=== PATIENT | male | born 1935 | race Two or more races ===

== ENCOUNTER 2016-08-02 17:07 | Emergency (ER) | payer MEDICARE, MEDICAID ==
--- NOTE | 2016-08-02 18:31 | ER Document Report ---
ED Medical Screen (RME) - General Chief Complaint: Urinary Problem Stated Complaint: POSSIBLE BLOOD IN URINE Time Seen by Provider: 08/02/16 18:28 Notes: 81-year-old male with past medical history as recorded including diabetes, prostatic hypertrophy, and hematuria who presents today with 2 days of hematuria and some dysuria. Patient also states some lower abdominal "swelling ". He denies any nausea, vomiting, or fevers. TRAVEL OUTSIDE OF THE [place] IN LAST 30 DAYS: No - Related Data Allergies/Adverse Reactions: No Known Allergies Allergy (Verified 08/02/16 17:26) Past Medical History - Past Medical History Cardiac Medical History: Reports: Hx Hypercholesterolemia, Hx Hypertension Neurological Medical History: Denies: Hx Seizures Endocrine Medical History: Reports: Hx Diabetes Mellitus Type 1 Renal/ Medical History: Reports: Hx End Stage Renal Disease - III. Denies: Hx Peritoneal Dialysis Psychiatric Medical History: Reports: Hx Dementia Physical Exam - Vital signs Vitals: Temp Pulse Resp BP Pulse Ox 98.1 F 78 20 148/69 H 98 08/02/16 17:36 08/02/16 17:36 08/02/16 17:36 08/02/16 17:36 08/02/16 17:36 Course - Vital Signs Vital signs: Temp Pulse Resp BP Pulse Ox 98.1 F 78 20 148/69 H 98 08/02/16 17:36 08/02/16 17:36 08/02/16 17:36 08/02/16 17:36 08/02/16 17:36
[2016-08-02] MEDS ORDERED: LIDOCAINE 2% URO-JET 5 ML KIT MM ONE (18:54)
[2016-08-02] MEDS ORDERED: ALBUTEROL SULFATE 0.083% NEB 2.5 MG/3 ML AMPUL NEB ONE (19:26)
[2016-08-02 19:43] LABS: PROTHROMBIN TIME 16.6 SEC (11.4-15.4)
[2016-08-02 19:44] LABS: PARTIAL THROMBOPLASTIN TIME 37.4 SEC (23.5-35.8)
[2016-08-02 19:48] LABS: APPEARANCE,URINE CLOUDY; BILIRUBIN,URINE NEGATIVE (NEGATIVE); GLUCOSE, URINE 50 mg/dL (NEGATIVE); KETONES,URINE NEGATIVE (NEGATIVE); LEUKOCYTE ESTERASE,URINE SMALL (NEGATIVE); NITRITE,URINE NEGATIVE (NEGATIVE); PROTEIN,URINE 100 mg/dL (NEGATIVE); URINE SPECIFIC GRAVITY 1.011; UROBILINOGEN,URINE NEGATIVE mg/dL (<2.0)
[2016-08-02 19:49] LABS: ABSOLUTE BASOPHILS # (AUTO) 0.1 10^3/uL (0.0-0.2); ABSOLUTE EOSINOPHILS # (AUTO) 0.1 10^3/uL (0.0-0.6); ABSOLUTE LYMPHOCYTES (AUTO) 1.1 10^3/uL (0.5-4.7); ABSOLUTE MONOCYTES (AUTO) 1.3 10^3/uL (0.1-1.4); ABSOLUTE NEUT (AUTO) 16.7 10^3/uL (1.7-8.2); BASOPHILS % (AUTO) 0.3 % (0-2); EOSINOPHILS % (AUTO) 0.4 % (0-6); HEMATOCRIT 23.3 % (37.9-51.0); HGB HCT DIFFERENCE -0.8; LYMPHOCYTES % (AUTO) 5.8 % (13-45); MEAN CORPUSCULAR HEMOGLOBIN 28.8 pg (27.0-33.4); MEAN CORPUSCULAR HGB CONC 32.2 g/dL (32.0-36.0); MEAN CORPUSCULAR VOLUME 89 fl (80-97); MONOCYTES % (AUTO) 6.9 % (3-13); RED BLOOD COUNT 2.61 10^6/uL (4.35-5.55); SEGMENTED NEUTROPHILS % (AUTO) 86.6 % (42-78); WHITE BLOOD COUNT 19.3 10^3/uL (4.0-10.5)
[2016-08-02 20:05] LABS: ALANINE AMINOTRANSFERASE 35 U/L (21-72); ALKALINE PHOSPHATASE 203 U/L (38-126); ANION GAP 17 (5-19); ASPARTATE AMINO TRANSFERASE 38 U/L (17-59); BILIRUBIN,DIRECT 0.7 mg/dL (0.0-0.4); BILIRUBIN,TOTAL 0.7 mg/dL (0.2-1.3); CARBON DIOXIDE 13 mmol/L (22-30); CHLORIDE 104 mmol/L (98-107); CREATININE RESULT 8.08 mg/dL (0.52-1.25); GLUCOSE 153 mg/dL (75-110); SODIUM 134.4 mmol/L (137-145); TOTAL PROTEIN 6.5 g/dL (6.3-8.2)
[2016-08-02 20:13] LABS: BLOOD UREA NITROGEN 130 mg/dL (7-20)
[2016-08-02 20:14] LABS: POTASSIUM 7.6 mmol/L (3.6-5.0)
[2016-08-02 20:15] LABS: HEMOGLOBIN 7.5 g/dL (13.5-17.0)
[2016-08-02] MEDS ORDERED: INSULIN REG, HUMAN 100 UNIT/ML 3 ML VIAL (PYX) IM ONE (20:25)
[2016-08-02] MEDS ORDERED: SODIUM POLYSTYRENE SULFONATE 15 GM/60 ML PO ONE (20:25)
[2016-08-02] MEDS ORDERED: CALCIUM GLUCONATE 1000 MG/10 ML INJ IV ONE (20:25)
[2016-08-02] MEDS ORDERED: INSULIN REG, HUMAN 100 UNIT/ML 3 ML VIAL (PYX) IV ONE ×2 (20:30→20:51)
[2016-08-02] MEDS ORDERED: DEXTROSE 10%-WATER 500 ML IV PRN (20:30)
[2016-08-02] MEDS ORDERED: CEFTRIAXONE 1 GM/D5W RTU 50 ML IV ONE (20:36)
--- NOTE | 2016-08-02 20:36 | ER Document Report ---
ED GI/ - General Chief Complaint: Urinary Problem Stated Complaint: POSSIBLE BLOOD IN URINE Time Seen by Provider: 08/02/16 18:28 Mode of Arrival: Ambulatory Information source: Patient Notes: Pt is an 81 year old male with a history of CKD, DM, HTN, dementia who presents today for hematuria x 1 week. Pt has a history of this and has been admitted before for acute renal failure. He is not a dialysis patient, he is not on blood thinners. He admits to some low back pain bilaterally, denies fever/chills , denies abdominal pain, nausea/vomiting, diarrhea, chest pain, shortness of breath. TRAVEL OUTSIDE OF THE [place] IN LAST 30 DAYS: No - Related Data Allergies/Adverse Reactions: No Known Allergies Allergy (Verified 08/02/16 17:26) Past Medical History - General Information source: Patient - Social History Smoking Status: Former Smoker Chew tobacco use (# tins/day): No Frequency of alcohol use: None Drug Abuse: None Family History: Reviewed & Not Pertinent Patient has suicidal ideation: No Patient has homicidal ideation: No - Past Medical History Cardiac Medical History: Reports: Hx Hypercholesterolemia, Hx Hypertension Neurological Medical History: Denies: Hx Seizures Endocrine Medical History: Reports: Hx Diabetes Mellitus Type 1 Renal/ Medical History: Reports: Hx End Stage Renal Disease - III. Denies: Hx Peritoneal Dialysis Psychiatric Medical History: Reports: Hx Dementia Review of Systems - Review of Systems Constitutional: No symptoms reported EENT: No symptoms reported Cardiovascular: No symptoms reported Respiratory: No symptoms reported Gastrointestinal: No symptoms reported Genitourinary: See HPI Male Genitourinary: No symptoms reported Musculoskeletal: No symptoms reported Skin: No symptoms reported Hematologic/Lymphatic: No symptoms reported Neurological/Psychological: No symptoms reported Physical Exam - Vital signs Vitals: Temp Pulse Resp BP Pulse Ox 98.1 F 78 20 148/69 H 98 08/02/16 17:36 08/02/16 17:36 08/02/16 17:36 08/02/16 17:36 08/02/16 17:36 - Notes Notes: PHYSICAL EXAMINATION: GENERAL: Chronically ill-appearing, otherwise in no acute distress. HEAD: Atraumatic, normocephalic. EYES: Pupils equal round and reactive to light, extraocular movements intact, sclera anicteric, conjunctiva are normal. NECK: Normal range of motion, supple without lymphadenopathy LUNGS: CTAB and equal. No wheezes rales or rhonchi. HEART: Regular rate and rhythm without murmurs ABDOMEN: Soft, no tenderness. No guarding, no rebound BACK: no vertebral tenderness, normal ROM GI/: gross blood in miguel cath, no CVA tenderness EXTREMITIES: Normal range of motion, no pitting edema. No cyanosis. NEUROLOGICAL: answers questions appropriately and is alert and oriented to person, place and time, Cranial nerves grossly intact. Normal sensory/motor exams. PSYCH: Normal mood, normal affect. SKIN: Warm, Dry, normal turgor, no rashes or lesions noted Course - Re-evaluation Re-evalutation: 08/02/16 20:36 Pt has WBC of 19.3, >182 WBC in urinalysis, gross blood in miguel, potassium of 7.6, creatinine of 8.08. hgb of 7.6. He has no complaints other than blood in urine, denies chest pain or sob, pain anywhere, palpitations. Dr. Valentin, veterinary technician sonoscope operator wants him to be transferred for urgent dialysis. [facility] has been contacted, I'm awaiting callback. EKG reveals no peaked T waves or other acute abnormality, normal sinus rhythm 08/02/16 20:44 Dr. Dutton, veterinary technician sonoscope operator agrees to take pt at [facility] for hyperkalemia , urgent dialysis. 08/02/16 21:01 08/02/16 21:21 Dr. Mendez agrees to admit patient, he has a bed in the ICU. 08/02/16 23:01 transport is here to take pt, his potassium has reduced to 6.7, blood was not able to be given here due to amount of time it takes to prepare blood, he wouldn 't have gotten the blood in the amount of time it takes to get to [facility]. Pt resting comfortably no complaints. CAT scan reports severe bilateral hydroureteronephrosis with infiltration into the bladder 08/03/16 00:18 08/03/16 00:21 08/03/16 00:21 - Vital Signs Vital signs: Temp Pulse Resp BP Pulse Ox 98.6 F 78 29 H 147/68 H 100 08/02/16 23:01 08/02/16 17:36 08/02/16 23:01 08/02/16 23:01 08/02/16 23:01 - Laboratory Result Diagrams: 08/02/16 18:40 08/02/16 23:14 Laboratory results interpreted by me: 08/02/16 08/02/16 08/02/16 18:40 18:40 18:40 WBC 19.3 H RBC 2.61 L Hgb 7.5 L Hct 23.3 L Seg Neutrophils % 86.6 H Lymphocytes % 5.8 L Absolute Neutrophils 16.7 H PT 16.6 H APTT 37.4 H Sodium 134.4 L Potassium 7.6 H* Carbon Dioxide 13 L BUN 130 H Creatinine 8.08 H Est GFR ( Amer) 8 L Est GFR (Non-Af Amer) 6 L Glucose 153 H POC Glucose Direct Bilirubin 0.7 H Alkaline Phosphatase 203 H Total Protein Albumin 3.0 L Urine Protein Urine Glucose (UA) Urine Blood Ur Leukocyte Esterase Urine Ascorbic Acid Crossmatch 08/02/16 08/02/16 08/02/16 18:45 21:07 21:19 WBC RBC Hgb Hct Seg Neutrophils % Lymphocytes % Absolute Neutrophils PT APTT Sodium Potassium Carbon Dioxide BUN Creatinine Est GFR ( Amer) Est GFR (Non-Af Amer) Glucose POC Glucose 178 H Direct Bilirubin Alkaline Phosphatase Total Protein Albumin Urine Protein 100 H Urine Glucose (UA) 50 H Urine Blood LARGE H Ur Leukocyte Esterase SMALL H Urine Ascorbic Acid 20 H Crossmatch See Detail 08/02/16 23:14 WBC RBC Hgb Hct Seg Neutrophils % Lymphocytes % Absolute Neutrophils PT APTT Sodium 136.8 L Potassium 6.7 H* Carbon Dioxide 12 L BUN 130 H Creatinine 8.31 H Est GFR ( Amer) 8 L Est GFR (Non-Af Amer) 6 L Glucose 166 H POC Glucose Direct Bilirubin 0.6 H Alkaline Phosphatase 180 H Total Protein 6.0 L Albumin 2.8 L Urine Protein Urine Glucose (UA) Urine Blood Ur Leukocyte Esterase Urine Ascorbic Acid Crossmatch Discharge - Discharge Clinical Impression: Hyperkalemia, Gross hematuria, Hydroureteronephrosis Acute renal failure Qualifiers: Acute renal failure type: unspecified Qualified Code(s): N17.9 - Acute kidney failure, unspecified Condition: Stable Disposition: [facility] Referrals: KASHIF PIERCE MD [Primary Care Provider] - Follow up as needed
[2016-08-02] MEDS ORDERED: DEXTROSE 50%-WATER 25 GM/50 ML DISP.SYRIN IV ONE (20:51)
[2016-08-02] MEDS ORDERED: NORMAL SALINE 250 ML IV PRN ×2 (20:52→20:54)
--- NOTE | 2016-08-02 22:13 | EKG REPORT ---
SEVERITY:- ABNORMAL ECG - SINUS RHYTHM CONSIDER INFERIOR INFARCT NONSPECIFIC REPOL ABNORMALITY, LATERAL LEADS : Confirmed by: Lara Hodge MD 02-Aug-2016 22:12:55
--- NOTE | 2016-08-02 22:13 | EKG REPORT ---
SEVERITY:- ABNORMAL ECG - SINUS RHYTHM CONSIDER INFERIOR INFARCT CONSIDER ANTERIOR INFARCT NONSPECIFIC REPOL ABNORMALITY, LATERAL LEADS : Confirmed by: Lara Hodge MD 02-Aug-2016 22:12:50
[2016-08-02 23:20] VITALS: BP 147/68
[2016-08-02 23:41] LABS: ALANINE AMINOTRANSFERASE 32 U/L (21-72); ALBUMIN 2.8 g/dL (3.5-5.0); ALKALINE PHOSPHATASE 180 U/L (38-126); ANION GAP 18 (5-19); ASPARTATE AMINO TRANSFERASE 33 U/L (17-59); BILIRUBIN,DIRECT 0.6 mg/dL (0.0-0.4); BILIRUBIN,TOTAL 0.6 mg/dL (0.2-1.3); CALCIUM 9.6 mg/dL (8.4-10.2); CARBON DIOXIDE 12 mmol/L (22-30); CHLORIDE 107 mmol/L (98-107); CREATININE RESULT 8.31 mg/dL (0.52-1.25); GLUCOSE 166 mg/dL (75-110); SODIUM 136.8 mmol/L (137-145)
[2016-08-02 23:53] LABS: BLOOD UREA NITROGEN 130 mg/dL (7-20)
[2016-08-02 23:56] LABS: POTASSIUM 6.7 mmol/L (3.6-5.0)
== END 2016-08-02 23:05 | disposition short-term general hospital (02) ==
LOC: ER 17:07
DX: E87.5 Hyperkalemia (principal); R31.0 Gross hematuria; N13.30 Unspecified hydronephrosis; N17.9 Acute kidney failure, unspecified; R39.198 Other difficulties with micturition; N18.9 Chronic kidney disease, unspecified; E11.9 Type 2 diabetes mellitus without complications; I10 Essential (primary) hypertension; Z87.891 Personal history of nicotine dependence
CPT/HCPCS: 93005; 94640; 99285; 51702; 96375; 96365; 96367; 86900; 86901; 36415; 87040; 87086; 84439; 86850; 82962; 82607; 82550; 82728; 82746; 83540; 83550; 84153; 84443; 85025; 85610; 85730; 87088; 80053; 81001; 87186; 83036; 80061; 76380; 93010; J0610; J3490; A9270 ×3; J0696; J1815

== ENCOUNTER 2016-08-28 21:27 | Inpatient (IN) | payer MEDICARE, MEDICAID ==
[2016-08-28] MEDS ORDERED: LIDOCAINE 2% URO-JET 5 ML KIT MM ONE (22:26)
--- NOTE | 2016-08-28 22:58 | ER Document Report ---
ED General - General Chief Complaint: Urinary Problem Stated Complaint: FEVER/POSSIBLE BLOOD CLOT Time Seen by Provider: 08/28/16 22:39 Notes: Patient is a 81-year-old male who presents with complaint of having a fever of 102 today. He also noticed some blood when he urinated. He has 2 bilateral nephrostomy tubes. He has a bladder mass. A week ago he was discharged from after having bilateral nephrostomy tubes placed because he was having hydronephrosis from his bladder mass. He says to follow-up later this week with the ctrs for repeat CT scan. Tonight he developed fever and therefore came to the ER. He has had no cough. No congestion. Is not currently on antibiotics. No other complaints at this time. TRAVEL OUTSIDE OF THE [place] IN LAST 30 DAYS: No - Related Data Allergies/Adverse Reactions: No Known Allergies Allergy (Verified 08/02/16 17:26) Past Medical History - Social History Smoking Status: Unknown if Ever Smoked Frequency of alcohol use: None Drug Abuse: None Family History: Reviewed & Not Pertinent Patient has suicidal ideation: No Patient has homicidal ideation: No - Past Medical History Cardiac Medical History: Reports: Hx Hypercholesterolemia, Hx Hypertension Neurological Medical History: Denies: Hx Seizures Endocrine Medical History: Reports: Hx Diabetes Mellitus Type 1 Renal/ Medical History: Reports: Hx End Stage Renal Disease - III. Denies: Hx Peritoneal Dialysis Psychiatric Medical History: Reports: Hx Dementia Review of Systems - Review of Systems Notes: My Normal Review Basic REVIEW OF SYSTEMS: CONSTITUTIONAL : fever of 102 EENT: Denies eye, ear, throat, or mouth pain or symptoms. Denies nasal or sinus congestion. CARDIOVASCULAR: Denies chest pain. RESPIRATORY: Denies cough, cold, or chest congestion. Denies shortness of breath, difficulty breathing, or wheezing. GASTROINTESTINAL: Denies abdominal pain. Denies nausea, vomiting, or diarrhea. GENITOURINARY: Hematuria. Bilateral nephrostomy tubes MUSCULOSKELETAL: Denies neck or back pain or joint pain or swelling. SKIN: Denies rash or skin lesions. NEUROLOGICAL: Denies altered mental status or loss of consciousness. Denies headache. Denies weakness or paralysis or loss of use of either side. Denies problems with gait or speech. Denies sensory or motor loss. ALL OTHER SYSTEMS REVIEWED AND NEGATIVE. Physical Exam - Vital signs Vitals: Temp Pulse Resp BP Pulse Ox 98.7 F 91 16 182/78 H 97 08/28/16 21:50 08/28/16 21:50 08/28/16 21:50 08/28/16 21:50 08/28/16 21:50 - Notes Notes: General Appearance: Well nourished, alert, cooperative, no acute distress, no obvious discomfort. Vitals: reviewed, See vital signs table. Head: no swelling or tenderness to the head Eyes: PERRL, EOMI, Conjuctiva clear Mouth: No decreasd moisture Lungs: No wheezing, No rales, No rhonci, No accessory muscle use, good air exchange bilaterally. Heart: Normal rate, Regular rythm, No murmur, no rub Back: nephrostomy tubes in place. No redness or swelling around the sites Abdomen: Normal BS, soft, No rigidity, No abdominal tenderness, No guarding, no rebound, no abdominal masses, no organomegaly Extremities: strength 5/5 in all extremities, good pulses in all extremities, no swelling or tenderness in the extremities, no edema. Skin: warm, dry, appropriate color, no rash Neuro: speech clear, oriented x 3, normal affect, responds appropriately to questions. Course - Vital Signs Vital signs: Temp Pulse Resp BP Pulse Ox 98.7 F 91 16 182/78 H 97 08/28/16 21:50 08/28/16 21:50 08/28/16 21:50 08/28/16 21:50 08/28/16 21:50 - Laboratory Result Diagrams: 08/28/16 23:19 08/28/16 23:19 Laboratory results interpreted by me: 08/28/16 08/28/16 08/28/16 23:19 23:19 23:19 WBC 15.6 H Hgb 12.4 L MCHC 31.9 L RDW 15.9 H Absolute Neutrophils 12.0 H Absolute Monocytes 1.5 H Sodium 135.2 L BUN 44 H Creatinine 1.67 H Est GFR ( Amer) 48 L Est GFR (Non-Af Amer) 40 L Glucose 260 H Calcium 7.9 L Urine Protein >=500 H Urine Glucose (UA) >=500 H Urine Blood SMALL H Ur Leukocyte Esterase MODERATE H 08/28/16 23:19 WBC Hgb MCHC RDW Absolute Neutrophils Absolute Monocytes Sodium BUN Creatinine Est GFR ( Amer) Est GFR (Non-Af Amer) Glucose Calcium Urine Protein >=500 H Urine Glucose (UA) >=500 H Urine Blood MODERATE H Ur Leukocyte Esterase LARGE H - Transfer of Care Notes: 08/29/16 01:19 Patient has what appears to be infection coming from the urine in the right nephrostomy tube. I will start him on Ambien antibiotics. I have ordered a urine culture. I did call [facility] and spoke with Dr. Medina. He recommends admission here with antibiotics. I did call and speak with Dr. Clayton, physician covering for Dr. Johnson, who agrees to accept the patient. 08/29/16 01:20 Dictation of this chart was performed using voice recognition software; therefore, there may be some unintended grammatical errors. Discharge - Discharge Clinical Impression: Pyuria Fever Qualifiers: Fever type: unspecified Qualified Code(s): R50.9 - Fever, unspecified Condition: Good Disposition: HOME, SELF-CARE Admitting Provider: Alex Unit Admitted: Telemetry
[2016-08-28 23:56] LABS: ABSOLUTE MONOCYTES (AUTO) 1.5 10^3/uL (0.1-1.4); BASOPHILS % (AUTO) 0.2 % (0-2); EOSINOPHILS % (AUTO) 0.2 % (0-6); HEMOGLOBIN 12.4 g/dL (13.5-17.0); HGB HCT DIFFERENCE -1.8; MEAN CORPUSCULAR HGB CONC 31.9 g/dL (32.0-36.0); MEAN CORPUSCULAR VOLUME 88 fl (80-97); MONOCYTES % (AUTO) 9.4 % (3-13); RED BLOOD COUNT 4.44 10^6/uL (4.35-5.55); RED CELL DISTRIBUTION WIDTH 15.9 % (11.5-14.0); SEGMENTED NEUTROPHILS % (AUTO) 77.2 % (42-78); WHITE BLOOD COUNT 15.6 10^3/uL (4.0-10.5)
[2016-08-29 00:04] LABS: ANION GAP 9 (5-19); BLOOD UREA NITROGEN 44 mg/dL (7-20); CALCIUM 7.9 mg/dL (8.4-10.2); CARBON DIOXIDE 24 mmol/L (22-30); CHLORIDE 102 mmol/L (98-107); CREATININE RESULT 1.67 mg/dL (0.52-1.25); GLUCOSE 260 mg/dL (75-110); POTASSIUM 4.1 mmol/L (3.6-5.0); SODIUM 135.2 mmol/L (137-145)
[2016-08-29 00:10] LABS: APPEARANCE,URINE SLIGHTLY-CLOUDY; BILIRUBIN,URINE NEGATIVE (NEGATIVE); GLUCOSE, URINE >=500 mg/dL (NEGATIVE); KETONES,URINE NEGATIVE (NEGATIVE); LEUKOCYTE ESTERASE,URINE MODERATE (NEGATIVE); NITRITE,URINE NEGATIVE (NEGATIVE); PROTEIN,URINE >=500 mg/dL (NEGATIVE); URINE SPECIFIC GRAVITY 1.009; UROBILINOGEN,URINE NEGATIVE mg/dL (<2.0)
[2016-08-29 00:21] LABS: APPEARANCE,URINE CLOUDY; BILIRUBIN,URINE NEGATIVE (NEGATIVE); GLUCOSE, URINE >=500 mg/dL (NEGATIVE); KETONES,URINE NEGATIVE (NEGATIVE); LEUKOCYTE ESTERASE,URINE LARGE (NEGATIVE); NITRITE,URINE NEGATIVE (NEGATIVE); PROTEIN,URINE >=500 mg/dL (NEGATIVE); URINE SPECIFIC GRAVITY 1.008; UROBILINOGEN,URINE NEGATIVE mg/dL (<2.0)
--- NOTE | 2016-08-29 00:38 | RADIOLOGY REPORT (SQ) ---
EXAM DESCRIPTION: CHEST SINGLE VIEW COMPLETED DATE/TIME: 08/28/2016 11:59 pm REASON FOR STUDY: fever COMPARISON: 08/11/2015. EXAM PARAMETERS: NUMBER OF VIEWS: One view. TECHNIQUE: Single frontal radiographic view of the chest acquired. RADIATION DOSE: NA LIMITATIONS: None. FINDINGS: LUNGS AND PLEURA: No opacities, masses or pneumothorax. No pleural effusion. Minimal blun ting of the right costophrenic angle may indicate a minimal effusion/scar. Stable. MEDIASTINUM AND HILAR STRUCTURES: No masses. Contour normal. HEART AND VASCULAR STRUCTURES: Heart normal in size. Normal vasculature. BONES: No acute findings. Deformity of the right 7th posterior rib. Mild disc desiccation. HARDWARE: None in the chest. OTHER: No other significant finding. IMPRESSION: No acute cardiopulmonary findings. TECHNICAL DOCUMENTATION: JOB ID: [id number]
--- NOTE | 2016-08-29 00:45 | RADIOLOGY REPORT (SQ) ---
EXAM DESCRIPTION: CT LTD RENAL STONE PROTOCOL ON COMPLETED DATE/TIME: 08/29/2016 12:00 am REASON FOR STUDY: fever, nephrostomy tubes COMPARISON: 08/02/2016. TECHNIQUE: CT scan of the abdomen and pelvis performed without intravenous or oral contrast. Images reviewed with lung, soft tissue, and bone windows. Reconstructed coronal and sagittal MPR images revi ewed. All images stored on PACS. All CT scanners at this facility use dose modulation, iterative reconstruction, and/or weight based d osing when appropriate to reduce radiation dose to as low as reasonably achievable (ALARA). [facility]: Dose Right [facility]: CareDose [facility]: Dose Right [facility]: Teradose 4D [facility]: [employer] RADIATION DOSE: 4.82mGy. LIMITATIONS: None. FINDINGS: LOWER CHEST: No significant findings. No nodules or infiltrates. Small right pleural effu iliana. 0.3 cm noncalcified pulmonary nodule of the right lung base. NON-CONTRASTED LIVER, SPLEEN, ADRENALS: Evaluation limited by lack of IV contrast. No identified sign ificant masses. PANCREAS: No masses. No peripancreatic inflammatory changes. GALLBLADDER: Moderate para cholecystic fluid. RIGHT KIDNEY AND URETER: No suspicious masses. Assessment limited by lack of IV contrast. No signif icant calcifications. No hydronephrosis or hydroureter. Nephrostomy tube. Mild perinephric fat st randing. LEFT KIDNEY AND URETER: No suspicious masses. Assessment limited by lack of IV contrast. No signifi cant calcifications. No hydronephrosis or hydroureter. Nephrostomy tube. 1.1 cm exophytic likely benign cyst. Mild perinephric fat stranding. AORTA AND RETROPERITONEUM: Atherosclerosis. The BOWEL AND PERITONEAL CAVITY: No obvious masses or inflammatory changes. No free fluid. Moderate dive rticulosis. APPENDIX: Not visualized. PELVIS, BLADDER, AND ABDOMINAL WALL:Moderate soft tissue density prominence in the posterior urinary bladder; urinary bladder wall thickening. BONES: Right posterior 7th rib deformity. OTHER: No other significant finding. IMPRESSION: Soft tissue component within the urinary bladder and diffuse urinary bladder wall thicke sarah consistent with prior CT, 08/02/2016 ; differential diagnosis includes infectious, inflammatory, and neoplastic processes. Bilateral nephrostomy drainage tubes. TECHNICAL DOCUMENTATION: JOB ID: [id number] Quality ID # [id number]: Final reports with documentation of one or more dose reduction techniques (e.g., Au tomated exposure control, adjustment of the mA and/or kV according to patient size, use of iterative reconstruction technique) 2010 [employer]- All Rights Reserved
[2016-08-29] MEDS ORDERED: NORMAL SALINE 1000 ML 1,000 ML IV PRN (04:49)
[2016-08-29] MEDS ORDERED: IPRATROPIUM/ALBUTEROL 0.5-2.5 MG/3 ML AMPUL NEB PRN (06:33)
[2016-08-29] MEDS ORDERED: ACETAMINOPHEN 325 MG TABLET PO PRN (06:33)
[2016-08-29] MEDS ORDERED: GLUCAGON,HUMAN RECOMB 1 MG INJ IM PRN (06:38)
[2016-08-29] MEDS ORDERED: DEXTROSE 40% GEL 15 GM TUBE PO PRN ×2 (06:38)
[2016-08-29] MEDS ORDERED: DEXTROSE 50%-WATER 25 GM/50 ML DISP.SYRIN IV PRN ×2 (06:38)
[2016-08-29] MEDS: DOCUSATE SODIUM 100 MG CAPSULE PO SCH ×2 (09:28→17:50)
[2016-08-29] MEDS: FAMOTIDINE 20 MG TABLET PO SCH ×2 (09:29→23:14)
[2016-08-29] MEDS: CEFEPIME HCL 1 GM in DEXTROSE 5%-WATER 50 ML IV SCH ×2 (09:29→23:14)
[2016-08-29] MEDS ORDERED: CEFEPIME 1 GM/D5W RTU 50 ML IV SCH (10:00)
--- NOTE | 2016-08-29 10:23 | PDOC H&P ---
History of Present Illness Admission Date/PCP: 08/29/16 06:33 KASHIF PIERCE MD Patient complains of: Fever and sepsis History of Present Illness: JAIDA BLISS is a 81 year old male This is a 81-year-old male with a significant history of the bladder mass and the cancer and hydronephrosis and the status post bilateral nephrostomy tube and waiting to go to the [facility] for possible bladder removal surgery and currently see new but urology and was admitted couple of weeks back for the hematuria and all procedure was done over there. Patient also have acute renal failure and have a hemodialysis was done temporarily in the hospital to. Patients came to the emergency department because complaining of fever and the weakness and found to be infections in the urine in the ER physicians called the and suggest to admit here for the IV antibiotic Patient's currently denied any abdominal pain no nausea no vomiting. Patient's denied any blood in the urine other than that on and off see he sees some blood but that is coming from the bladder mass. Patient hemoglobin currently stable Patients denied any chest pain no shortness of the breath Past Medical History Cardiac Medical History: Reports: Hyperlipidema, Hypertension Pulmonary Medical History: Reports: Chronic Obstructive Pulmonary Disease (COPD) Neurological Medical History: Denies: Seizures Endocrine Medical History: Reports: Diabetes Mellitus Type 2 Renal/ Medical History: Reports: Chronic Kidney Disease Malignancy Medical History: Reports: Other Malignancy History Note: Bladder cancer t GI Medical History: Reports: Gastroesophageal Reflux Disease Psychiatric Medical History: Reports: Dementia Hematology: Reports: Anemia Past Surgical History Past Surgical History: Reports: Other - Bilateral nephrostomy tube was placed Social History Smoking Status: Former Smoker Frequency of Alcohol Use: Occasional Hx Recreational Drug Use: No Drugs: None Hx Prescription Drug Abuse: No Family History Family History: Reviewed & Not Pertinent Parental Family History Reviewed: Yes Children Family History Reviewed: Yes Sibling(s) Family History Reviewed.: Yes Medication/Allergy Home Medications: Atorvastatin Calcium [Lipitor 40 mg Tablet] 40 mg PO DAILY 08/29/16 Budesonide/Formoterol Fumarate [Symbicort Hfa 160-4.5 Mcg Inhaler 6 gm] 2 puff IH BID 08/29/16 Clonidine HCl [Catapres 0.1 mg Tablet] 0.1 mg PO QAM 08/29/16 Clonidine HCl [Catapres 0.1 mg Tablet] 0.1 mg PO QHS 08/29/16 Donepezil HCl [Aricept] 10 mg PO QHS 08/29/16 Fluticasone Propionate [Flonase Nasal [place] 50 Mcg/[place] 16 gm] 1 spray NASL DAILY 08/29/16 Fluticasone/Salmeterol [Advair 250-50 Diskus 14 Dose/Diskus] 1 inh IH BID Furosemide [Lasix 20 mg Tablet] 20 mg PO DAILY 08/29/16 Insulin Aspart [Novolog Insulin 100 Unit/1 ml 10 ml] 5 unit SUBCUT AC 08/29/16 Ipratropium/Albuterol Sulfate [Duoneb 3 ml Ampul] 3 ml NEB [id number] PRN 08/29/16 Lansoprazole [Prevacid 15 Mg Odt Tablet] 15 mg PO DAILY 08/29/16 Levothyroxine Sodium [Synthroid 50 Mcg Tablet] 50 mcg PO QAM 08/29/16 Metoprolol Succinate [Toprol Xl] 25 mg PO DAILY 08/29/16 Montelukast Sodium [Singulair] 10 mg PO DAILY 08/29/16 Tiotropium [place] [Spiriva Handihaler 18 mcg/dose (30 Dose)] 1 cap IH DAILYP PRN 08/29/16 Valsartan [Diovan] 80 mg PO DAILY 08/29/16 Allergies/Adverse Reactions: No Known Allergies Allergy (Verified 08/02/16 17:26) Review of Systems Constitutional: ABSENT: chills, fever(s), headache(s), weight gain, weight loss Eyes: ABSENT: visual disturbances Ears: ABSENT: hearing changes Cardiovascular: ABSENT: chest pain, dyspnea on exertion, edema, orthropnea, palpitations Respiratory: ABSENT: cough, hemoptysis Gastrointestinal: ABSENT: abdominal pain, constipation, diarrhea, hematemesis, hematochezia, nausea, vomiting Genitourinary: ABSENT: dysuria, hematuria Musculoskeletal: ABSENT: joint swelling Integumentary: ABSENT: rash, wounds Neurological: ABSENT: abnormal gait, abnormal speech, confusion, dizziness, focal weakness, syncope Psychiatric: ABSENT: anxiety, depression, homidical ideation, suicidal ideation Endocrine: ABSENT: cold intolerance, heat intolerance, menstrual abnormalities, polydipsia, polyuria Hematologic/Lymphatic: ABSENT: easy bleeding, easy bruising, lymphadenopathy Physical Exam Vital Signs: Temp Pulse Resp BP Pulse Ox 97.8 F 76 18 171/69 H 99 08/29/16 03:35 08/29/16 03:35 08/29/16 03:35 08/29/16 03:35 08/29/16 03:35 General appearance: PRESENT: no acute distress Head exam: PRESENT: atraumatic, normocephalic Eye exam: PRESENT: conjunctiva pink, EOMI, PERRLA. ABSENT: scleral icterus Ear exam: PRESENT: normal external ear exam Mouth exam: PRESENT: moist, tongue midline Neck exam: PRESENT: full ROM. ABSENT: carotid bruit, JVD, lymphadenopathy, thyromegaly Respiratory exam: PRESENT: clear to auscultation philomena Cardiovascular exam: PRESENT: +S1, +S2 Pulses: PRESENT: normal dorsalis pedis pul, +2 pedal pulses bilateral Vascular exam: PRESENT: normal capillary refill GI/Abdominal exam: PRESENT: normal bowel sounds, soft, other. ABSENT: distended , guarding, mass, organolmegaly, rebound, tenderness Additonal comments: Bilateral nephrostomy tube is present Rectal exam: PRESENT: deferred Extremities exam: ABSENT: pedal edema Neurological exam: PRESENT: alert, awake, oriented to person, oriented to place , oriented to time, oriented to situation, CN II-XII grossly intact. ABSENT: motor sensory deficit Psychiatric exam: PRESENT: appropriate affect, normal mood. ABSENT: homicidal ideation, suicidal ideation Skin exam: PRESENT: dry, intact, warm. ABSENT: cyanosis, rash Results Impressions: Chest X-Ray 08/28/16 22:49 IMPRESSION: No acute cardiopulmonary findings. Limited or Localized CT 08/28/16 22:49 IMPRESSION: Soft tissue component within the urinary bladder and diffuse urinary bladder wall thickening consistent with prior CT, 08/02/2016 ; differential diagnosis includes infectious, inflammatory, and neoplastic processes. Bilateral nephrostomy drainage tubes. Assessment & Plan - Diagnosis (1) Urinary tract bacterial infections Is this a current diagnosis for this admission?: YesPlan: Start the patient on IV broad-spectrum antibiotic and was discussed with the urology and continues to monitor the patient's (2) Hypertension Is this a current diagnosis for this admission?: YesPlan: Currently stable (3) Acute renal failure Qualifiers: Acute renal failure type: unspecified Qualified Code(s): N17.9 - Acute kidney failure, unspecified Is this a current diagnosis for this admission?: YesPlan: Currently stable with was some IV fluid (4) Bladder cancer Qualifiers: Bladder location: unspecified site Qualified Code(s): C67.9 - Malignant neoplasm of bladder, unspecified Is this a current diagnosis for this admission?: YesPlan: Patient's currently see the urology at the (5) Chronic obstructive pulmonary disease Qualifiers: Emphysema type: unspecified Is this a current diagnosis for this admission?: YesPlan: Continues on nebulizer treatments (6) Anemia Qualifiers: Anemia type: unspecified type Qualified Code(s): D64.9 - Anemia, unspecified Is this a current diagnosis for this admission?: YesPlan: Currently stable (7) Fever Qualifiers: Fever type: unspecified Qualified Code(s): R50.9 - Fever, unspecified Is this a current diagnosis for this admission?: YesPlan: Most likely a from the urinary tract infections possible pyelonephritis - Time Time Spent: 50 to 70 Minutes Medications reviewed and adjusted accordingly: Yes Anticipated discharge: SNF Within: Other - Inpatient Certification Medical Necessity: Need Close Monitoring Due to Risk of Patient Decompensation, Need For IV Fluids, Need for IV Antibiotics Post Hospital Care: D/C Development And Planning Engineer Documentation - Plan Summary Plan Summary: Start the patient on IV antibiotic but extensive discussion the patient and the daughter patient is currently no code patient's overall prognosis is not very good with ongoing problems with the bladder cancer's anemia and renal failure.
[2016-08-29] MEDS: LEVOFLOXACIN 750 MG/D5W RTU 750 MG/150 ML RTUPB IV SCH (11:01)
[2016-08-29] MEDS: INSULIN LISPRO 100 UNIT/ML 3 ML VIAL SUBCUT PRN (11:04)
[2016-08-29] MEDS: NORMAL SALINE 1000 ML 1,000 ML IV PRN (12:46)
[2016-08-29] MEDS ORDERED: LEVOTHYROXINE SODIUM 0.05 MG TABLET PO ONE (15:00)
[2016-08-29] MEDS ORDERED: METOPROLOL SUCCINATE 25 MG TAB.SR.24H PO ONE (15:00)
[2016-08-29] MEDS ORDERED: (PENDING PHARMACY ID) (Donepezil Hcl [Aricept] 10 MG) PO SCH (22:00)
[2016-08-29] MEDS: FLUTICASONE/SALMETEROL DISKUS 250-50 MCG/DOSE IH SCH (23:13)
[2016-08-29] MEDS: ATORVASTATIN CALCIUM 40 MG TABLET PO SCH (23:14)
[2016-08-29] MEDS: DONEPEZIL HCL 5 MG TABLET PO SCH (23:14)
[2016-08-29] MEDS: CLONIDINE HCL 0.1 MG TABLET PO SCH (23:14)
[2016-08-30] MEDS: LANSOPRAZOLE 15 MG TAB.RAP.DR PO SCH (05:22)
[2016-08-30] MEDS: LEVOTHYROXINE SODIUM 0.05 MG TABLET PO SCH (05:22)
[2016-08-30 06:22] LABS: ABSOLUTE EOSINOPHILS # (AUTO) 0.1 10^3/uL (0.0-0.6); ABSOLUTE LYMPHOCYTES (AUTO) 2.2 10^3/uL (0.5-4.7); ABSOLUTE MONOCYTES (AUTO) 1.2 10^3/uL (0.1-1.4); ABSOLUTE NEUT (AUTO) 11.8 10^3/uL (1.7-8.2); BASOPHILS % (AUTO) 0.2 % (0-2); EOSINOPHILS % (AUTO) 0.4 % (0-6); HEMATOCRIT 33.3 % (37.9-51.0); HEMOGLOBIN 10.8 g/dL (13.5-17.0); HGB HCT DIFFERENCE -0.9; LYMPHOCYTES % (AUTO) 14.3 % (13-45); MEAN CORPUSCULAR HEMOGLOBIN 28.1 pg (27.0-33.4); MEAN CORPUSCULAR HGB CONC 32.4 g/dL (32.0-36.0); MEAN CORPUSCULAR VOLUME 87 fl (80-97); RED BLOOD COUNT 3.84 10^6/uL (4.35-5.55); RED CELL DISTRIBUTION WIDTH 15.9 % (11.5-14.0); SEGMENTED NEUTROPHILS % (AUTO) 77.1 % (42-78); WHITE BLOOD COUNT 15.3 10^3/uL (4.0-10.5)
[2016-08-30 06:45] LABS: ANION GAP 9 (5-19); BLOOD UREA NITROGEN 38 mg/dL (7-20); CALCIUM 7.6 mg/dL (8.4-10.2); CARBON DIOXIDE 23 mmol/L (22-30); CHLORIDE 106 mmol/L (98-107); CREATININE RESULT 1.78 mg/dL (0.52-1.25); GLUCOSE 249 mg/dL (75-110); POTASSIUM 4.3 mmol/L (3.6-5.0)
[2016-08-30] MEDS: DOCUSATE SODIUM 100 MG CAPSULE PO SCH ×2 (09:47→17:54)
[2016-08-30] MEDS: MONTELUKAST SODIUM 10 MG TABLET PO SCH (09:47)
[2016-08-30] MEDS: METOPROLOL SUCCINATE 25 MG TAB.SR.24H PO SCH (09:47)
[2016-08-30] MEDS: FAMOTIDINE 20 MG TABLET PO SCH ×2 (09:47→21:35)
[2016-08-30] MEDS: FLUTICASONE/SALMETEROL DISKUS 250-50 MCG/DOSE IH SCH ×2 (09:48→21:35)
[2016-08-30] MEDS: FLUTICASONE NASAL SPRAY 50 MCG/SPRY 120 SPRAY/16 GM NASL SCH (09:48)
[2016-08-30] MEDS: CEFEPIME HCL 1 GM in DEXTROSE 5%-WATER 50 ML IV SCH ×2 (10:06→21:35)
[2016-08-30] MEDS: INSULIN LISPRO 100 UNIT/ML 3 ML VIAL SUBCUT PRN ×2 (11:50→16:38)
--- NOTE | 2016-08-30 13:49 | PDOC PROGRESS REPORT ---
Subjective Progress Note for:: 08/30/16 Subjective:: pt is doing well confuse overnight no fever nocp no sob Physical Exam Vital Signs: Temp Pulse Resp BP Pulse Ox 98.1 F 71 16 150/61 H 100 08/30/16 07:23 08/30/16 07:23 08/30/16 07:23 08/30/16 07:23 08/30/16 07:23 Intake & Output 08/29/16 08/30/16 08/31/16 06:59 06:59 06:59 Intake Total 1670 Output Total 1150 450 Balance 520 -450 Weight 50 kg General appearance: PRESENT: no acute distress Eye exam: PRESENT: PERRLA Mouth exam: PRESENT: neck supple Respiratory exam: PRESENT: clear to auscultation philomena Cardiovascular exam: PRESENT: +S1, +S2 GI/Abdominal exam: PRESENT: normal bowel sounds, soft Extremities exam: ABSENT: pedal edema Neurological exam: PRESENT: alert, awake, oriented to person, oriented to place , oriented to time, oriented to situation Skin exam: PRESENT: dry Results Laboratory Results: 08/30/16 05:48 08/30/16 05:48 08/30/16 08/30/16 05:48 05:48 WBC 15.3 H RBC 3.84 L Hgb 10.8 L Hct 33.3 L MCV 87 MCH 28.1 MCHC 32.4 RDW 15.9 H Plt Count 159 Seg Neutrophils % 77.1 Lymphocytes % 14.3 Monocytes % 8.0 Eosinophils % 0.4 Basophils % 0.2 Absolute Neutrophils 11.8 H Absolute Lymphocytes 2.2 Absolute Monocytes 1.2 Absolute Eosinophils 0.1 Absolute Basophils 0.0 Sodium 138.0 Potassium 4.3 Chloride 106 Carbon Dioxide 23 Anion Gap 9 BUN 38 H Creatinine 1.78 H Est GFR ( Amer) 45 L Est GFR (Non-Af Amer) 37 L Glucose 249 H Calcium 7.6 L Impressions: Chest X-Ray 08/28/16 22:49 IMPRESSION: No acute cardiopulmonary findings. Limited or Localized CT 08/28/16 22:49 IMPRESSION: Soft tissue component within the urinary bladder and diffuse urinary bladder wall thickening consistent with prior CT, 08/02/2016 ; differential diagnosis includes infectious, inflammatory, and neoplastic processes. Bilateral nephrostomy drainage tubes. Assessment & Plan - Diagnosis (1) Urinary tract bacterial infections Is this a current diagnosis for this admission?: YesPlan: Start the patient on IV broad-spectrum antibiotic and was discussed with the urology and continues to monitor the patient's (2) Hypertension Is this a current diagnosis for this admission?: YesPlan: Currently stable (3) Acute renal failure Qualifiers: Acute renal failure type: unspecified Qualified Code(s): N17.9 - Acute kidney failure, unspecified Is this a current diagnosis for this admission?: YesPlan: Currently stable with was some IV fluid (4) Bladder cancer Qualifiers: Bladder location: unspecified site Qualified Code(s): C67.9 - Malignant neoplasm of bladder, unspecified Is this a current diagnosis for this admission?: YesPlan: Patient's currently see the urology at the (5) Chronic obstructive pulmonary disease Qualifiers: Emphysema type: unspecified Is this a current diagnosis for this admission?: YesPlan: Continues on nebulizer treatments (6) Anemia Qualifiers: Anemia type: unspecified type Qualified Code(s): D64.9 - Anemia, unspecified Is this a current diagnosis for this admission?: YesPlan: Currently stable (7) Fever Qualifiers: Fever type: unspecified Qualified Code(s): R50.9 - Fever, unspecified Is this a current diagnosis for this admission?: Yes - Time Time Spent with patient: 15-24 minutes Medications reviewed and adjusted accordingly: Yes Anticipated discharge: Other Within: Other - Inpatient Certification Medical Necessity: Need Close Monitoring Due to Risk of Patient Decompensation, Need for IV Antibiotics Post Hospital Care: D/C Chlorine Cells Operator Documentation - Plan Summary Plan Summary: cont curr med
[2016-08-30] MEDS: ATORVASTATIN CALCIUM 40 MG TABLET PO SCH (21:35)
[2016-08-30] MEDS: CLONIDINE HCL 0.1 MG TABLET PO SCH (21:35)
[2016-08-30] MEDS: DONEPEZIL HCL 5 MG TABLET PO SCH (21:35)
[2016-08-31] MEDS: LEVOTHYROXINE SODIUM 0.05 MG TABLET PO SCH (05:52)
[2016-08-31] MEDS: LANSOPRAZOLE 15 MG TAB.RAP.DR PO SCH (05:52)
[2016-08-31 06:24] LABS: ABSOLUTE EOSINOPHILS # (AUTO) 0.3 10^3/uL (0.0-0.6); ABSOLUTE LYMPHOCYTES (AUTO) 2.1 10^3/uL (0.5-4.7); ABSOLUTE NEUT (AUTO) 10.8 10^3/uL (1.7-8.2); BASOPHILS % (AUTO) 0.2 % (0-2); EOSINOPHILS % (AUTO) 1.9 % (0-6); HEMATOCRIT 33.1 % (37.9-51.0); HEMOGLOBIN 10.8 g/dL (13.5-17.0); HGB HCT DIFFERENCE -0.7; LYMPHOCYTES % (AUTO) 14.5 % (13-45); MEAN CORPUSCULAR HEMOGLOBIN 28.6 pg (27.0-33.4); MEAN CORPUSCULAR HGB CONC 32.5 g/dL (32.0-36.0); MEAN CORPUSCULAR VOLUME 88 fl (80-97); MONOCYTES % (AUTO) 7.3 % (3-13); RED BLOOD COUNT 3.77 10^6/uL (4.35-5.55); RED CELL DISTRIBUTION WIDTH 16.3 % (11.5-14.0); SEGMENTED NEUTROPHILS % (AUTO) 76.1 % (42-78); WHITE BLOOD COUNT 14.2 10^3/uL (4.0-10.5)
[2016-08-31 06:37] LABS: ANION GAP 9 (5-19); BLOOD UREA NITROGEN 36 mg/dL (7-20); CALCIUM 7.3 mg/dL (8.4-10.2); CARBON DIOXIDE 19 mmol/L (22-30); CHLORIDE 110 mmol/L (98-107); CREATININE RESULT 1.68 mg/dL (0.52-1.25); GLUCOSE 168 mg/dL (75-110); POTASSIUM 3.5 mmol/L (3.6-5.0)
[2016-08-31] MEDS ORDERED: POTASSIUM CHLORIDE 10 MEQ TABLET.SA PO ONE (08:04)
--- NOTE | 2016-08-31 08:45 | PDOC PROGRESS REPORT ---
Subjective Progress Note for:: 08/31/16 Subjective:: Patient is currently doing fair no fever overnight. Patient's dressing change was done as per urology instructions for the by the nursing staff at the nephrostomy tube. Patients denied any chest pain denied any shortness of the breath Physical Exam Vital Signs: Temp Pulse Resp BP Pulse Ox 97.6 F 68 16 145/66 H 100 08/31/16 08:01 08/31/16 08:01 08/31/16 08:01 08/31/16 08:01 08/31/16 08:01 Intake & Output 08/30/16 08/31/16 09/01/16 06:59 06:59 06:59 Intake Total 1670 2235 Output Total 1150 2150 Balance 520 85 Weight 50 kg 59.9 kg General appearance: PRESENT: no acute distress, well-developed, well-nourished Head exam: PRESENT: atraumatic, normocephalic Eye exam: PRESENT: conjunctiva pink, EOMI, PERRLA. ABSENT: scleral icterus Ear exam: PRESENT: normal external ear exam Mouth exam: PRESENT: moist, tongue midline Neck exam: PRESENT: full ROM. ABSENT: carotid bruit, JVD, lymphadenopathy, thyromegaly Respiratory exam: PRESENT: clear to auscultation philomena Cardiovascular exam: PRESENT: RRR. ABSENT: diastolic murmur, rubs, systolic murmur Pulses: PRESENT: normal dorsalis pedis pul, +2 pedal pulses bilateral Vascular exam: PRESENT: normal capillary refill GI/Abdominal exam: PRESENT: normal bowel sounds, soft. ABSENT: distended, guarding, mass, organolmegaly, rebound, tenderness Rectal exam: PRESENT: deferred Neurological exam: PRESENT: alert, awake, oriented to person, oriented to place , oriented to time, oriented to situation, CN II-XII grossly intact. ABSENT: motor sensory deficit Psychiatric exam: PRESENT: appropriate affect, normal mood. ABSENT: homicidal ideation, suicidal ideation Skin exam: PRESENT: dry, intact, warm. ABSENT: cyanosis, rash Results Laboratory Results: 08/31/16 06:00 08/31/16 06:00 08/31/16 08/31/16 06:00 06:00 WBC 14.2 H RBC 3.77 L Hgb 10.8 L Hct 33.1 L MCV 88 MCH 28.6 MCHC 32.5 RDW 16.3 H Plt Count 168 Seg Neutrophils % 76.1 Lymphocytes % 14.5 Monocytes % 7.3 Eosinophils % 1.9 Basophils % 0.2 Absolute Neutrophils 10.8 H Absolute Lymphocytes 2.1 Absolute Monocytes 1.0 Absolute Eosinophils 0.3 Absolute Basophils 0.0 Sodium 138.0 Potassium 3.5 L Chloride 110 H Carbon Dioxide 19 L Anion Gap 9 BUN 36 H Creatinine 1.68 H Est GFR ( Amer) 48 L Est GFR (Non-Af Amer) 39 L Glucose 168 H Calcium 7.3 L Impressions: Chest X-Ray 08/28/16 22:49 IMPRESSION: No acute cardiopulmonary findings. Limited or Localized CT 08/28/16 22:49 IMPRESSION: Soft tissue component within the urinary bladder and diffuse urinary bladder wall thickening consistent with prior CT, 08/02/2016 ; differential diagnosis includes infectious, inflammatory, and neoplastic processes. Bilateral nephrostomy drainage tubes. Assessment & Plan - Diagnosis (1) Urinary tract bacterial infections Is this a current diagnosis for this admission?: YesPlan: Start the patient on IV broad-spectrum antibiotic and was discussed with the urology and continues to monitor the patient's (2) Hypertension Is this a current diagnosis for this admission?: YesPlan: Currently stable (3) Acute renal failure Qualifiers: Acute renal failure type: unspecified Qualified Code(s): N17.9 - Acute kidney failure, unspecified Is this a current diagnosis for this admission?: YesPlan: Currently stable (4) Bladder cancer Qualifiers: Bladder location: unspecified site Qualified Code(s): C67.9 - Malignant neoplasm of bladder, unspecified Is this a current diagnosis for this admission?: YesPlan: Patient's currently see the urology at the (5) Chronic obstructive pulmonary disease Qualifiers: Emphysema type: unspecified Is this a current diagnosis for this admission?: YesPlan: Continues on nebulizer treatments (6) Anemia Qualifiers: Anemia type: unspecified type Qualified Code(s): D64.9 - Anemia, unspecified Is this a current diagnosis for this admission?: YesPlan: Currently stable (7) Fever Qualifiers: Fever type: unspecified Qualified Code(s): R50.9 - Fever, unspecified Is this a current diagnosis for this admission?: Yes (8) Type 2 diabetes mellitus Qualifiers: Diabetes mellitus complication status: with unspecified complications Is this a current diagnosis for this admission?: YesPlan: Continues current medications - Time Time Spent with patient: 15-24 minutes Medications reviewed and adjusted accordingly: Yes Anticipated discharge: SNF Within: Other - Inpatient Certification Medical Necessity: Need Close Monitoring Due to Risk of Patient Decompensation, Need for IV Antibiotics Post Hospital Care: D/C Wrister Documentation - Plan Summary Plan Summary: Continues to IV antibiotic need a PICC line for antibiotic IV at home
[2016-08-31] MEDS: INSULIN LISPRO 100 UNIT/ML 3 ML VIAL SUBCUT PRN ×3 (09:23→18:08)
[2016-08-31] MEDS: DOCUSATE SODIUM 100 MG CAPSULE PO SCH ×2 (09:24→18:07)
[2016-08-31] MEDS: MONTELUKAST SODIUM 10 MG TABLET PO SCH (09:25)
[2016-08-31] MEDS: METOPROLOL SUCCINATE 25 MG TAB.SR.24H PO SCH (09:25)
[2016-08-31] MEDS: LEVOFLOXACIN 750 MG TABLET PO SCH (09:25)
[2016-08-31] MEDS: SODIUM BICARBONATE 650 MG TABLET PO SCH ×2 (09:27→21:38)
[2016-08-31] MEDS: FLUTICASONE NASAL SPRAY 50 MCG/SPRY 120 SPRAY/16 GM NASL SCH (09:28)
[2016-08-31] MEDS: FLUTICASONE/SALMETEROL DISKUS 250-50 MCG/DOSE IH SCH ×2 (09:28→21:39)
[2016-08-31] MEDS: LEVOFLOXACIN 750 MG/D5W RTU 750 MG/150 ML RTUPB IV SCH ×2 (09:29→11:18)
[2016-08-31] MEDS: CEFEPIME HCL 1 GM in DEXTROSE 5%-WATER 50 ML IV SCH (09:29)
[2016-08-31] MEDS: ERTAPENEM SODIUM 1 GM in NORMAL SALINE 50 ML IV SCH (12:59)
--- NOTE | 2016-08-31 16:33 | PDOC CONSULTATION ---
Consultation Consult Date: 08/31/16 Consult reason:: Acute kidney injury History of Present Illness Admission Date/PCP: 08/29/16 06:33 KASHIF PIERCE MD History of Present Illness: JAIDA BLISS is a 81 year old male with a history of diabetes mellitus , hypertension , CKD stage III with a base creatinine around 1.5 Who recently developed CA of the bladder with bilateral hydronephrosis. Patient has gone on to have bilateral nephrostomy tube and was advised to go to [facility] for further surgery. However as per discussion is done with the treating nurse the daughter has decided not to go that distance. Patient was admitted with altered mental status, Fever or chills and was found to be having UTI with sepsis. As per the treating nurse patient is doing lots better at the current moment.He still has intermittent periods of confusion more so at night.Patient is unable to give me a proper history therefore chart review was done.Apparently,Has a history of transient hemodialysis when he was at the [facility]. Patient has been begun on antibiotics and has responded quite well. He has a functioning bilateral nephrostomy tubes. Patient denies any history of chest pain shortness of breath. Nausea and abdominal pains fever chills.Lab shows stable creatinine. Past Medical History Cardiac Medical History: Reports: Hyperlipidemia, Hypertension-primary Pulmonary Medical History: Reports: Chronic Obstructive Pulmonary Disease (COPD) Neurological Medical History: Denies: Seizures Endocrine Medical History: Reports: Diabetes Mellitus Type 2, Hypothyroidism Renal/ Medical History: Reports: Chronic Kidney Disease Stage IV Malignancy Medical History: Reports: Other GI Medical History: Reports: Gastroesophageal Reflux Disease Psychiatric Medical History: Reports: Dementia Past Surgical History Past Surgical History: Reports: Other - Bilateral nephrostomy tube was placed Social History Smoking Status: Former Smoker Frequency of Alcohol Use: Occasional Hx Recreational Drug Use: No Drugs: None Hx Prescription Drug Abuse: No Family History Parental Family History Reviewed: Yes - Negative for years Children Family History Reviewed: No Sibling(s) Family History Reviewed.: No Medication/Allergy Home Medications: Atorvastatin Calcium [Lipitor 40 mg Tablet] 40 mg PO DAILY 08/29/16 Budesonide/Formoterol Fumarate [Symbicort Hfa 160-4.5 Mcg Inhaler 6 gm] 2 puff IH BID 08/29/16 Clonidine HCl [Catapres 0.1 mg Tablet] 0.1 mg PO QAM 08/29/16 Clonidine HCl [Catapres 0.1 mg Tablet] 0.1 mg PO QHS 08/29/16 Donepezil HCl [Aricept] 10 mg PO QHS 08/29/16 Fluticasone Propionate [Flonase Nasal [place] 50 Mcg/[place] 16 gm] 1 spray NASL DAILY 08/29/16 Fluticasone/Salmeterol [Advair 250-50 Diskus 14 Dose/Diskus] 1 inh IH BID Furosemide [Lasix 20 mg Tablet] 20 mg PO DAILY 08/29/16 Insulin Aspart [Novolog Insulin 100 Unit/1 ml 10 ml] 5 unit SUBCUT AC 08/29/16 Ipratropium/Albuterol Sulfate [Duoneb 3 ml Ampul] 3 ml NEB [id number] PRN 08/29/16 Lansoprazole [Prevacid 15 Mg Odt Tablet] 15 mg PO DAILY 08/29/16 Levothyroxine Sodium [Synthroid 50 Mcg Tablet] 50 mcg PO QAM 08/29/16 Metoprolol Succinate [Toprol Xl] 25 mg PO DAILY 08/29/16 Montelukast Sodium [Singulair] 10 mg PO DAILY 08/29/16 Tiotropium [place] [Spiriva Handihaler 18 mcg/dose (30 Dose)] 1 cap IH DAILYP PRN 08/29/16 Valsartan [Diovan] 80 mg PO DAILY 08/29/16 Allergies/Adverse Reactions: No Known Allergies Allergy (Verified 08/02/16 17:26) Review of Systems Constitutional: PRESENT: chills, fatigue, weakness. ABSENT: anorexia, headache( s), night sweats Nose, Mouth, and Throat: ABSENT: headache(s) Cardiovascular: ABSENT: edema, orthropnea, palpitations Respiratory: ABSENT: dyspnea, hemoptysis Gastrointestinal: ABSENT: abdominal pain, bloating, diarrhea, dysphagia, heartburn, hematemesis Genitourinary: ABSENT: difficulty urinating, dysuria, hematuria Neurological: PRESENT: abnormal speech, frequent falls, memory loss. ABSENT: abnormal gait, abnormal movements, focal weakness Endocrine: ABSENT: cold intolerance, flushing Hematologic/Lymphatic: ABSENT: easy bleeding, easy bruising Physical Exam Vital Signs: Temp Pulse Resp BP Pulse Ox 97.6 F 68 16 145/66 H 100 08/31/16 08:01 08/31/16 08:01 08/31/16 08:01 08/31/16 08:01 08/31/16 08:01 Intake & Output 08/30/16 08/31/16 09/01/16 06:59 06:59 06:59 Intake Total 1670 2235 Output Total 1150 2150 Balance 520 85 Weight 50 kg 59.9 kg General appearance: PRESENT: no acute distress, disheveled, thin Eye exam: PRESENT: conjunctiva pink, EOMI, PERRLA. ABSENT: nystagmus Ear exam: PRESENT: normal external ear exam. ABSENT: bleeding Neck exam: ABSENT: lymphadenopathy, meningismus, tenderness, thyromegaly, tracheal deviation Respiratory exam: PRESENT: clear to auscultation philomena. ABSENT: crackles, rhonchi Cardiovascular exam: PRESENT: +S1, +S2, systolic murmur GI/Abdominal exam: PRESENT: normal bowel sounds, soft. ABSENT: diminished bowel sounds, distended, organomegaly, tenderness Neurological exam: PRESENT: awake, oriented to person, oriented to place. ABSENT: oriented to time Skin exam: PRESENT: dry. ABSENT: cyanosis, mottled, rash Results Laboratory Results: 08/31/16 06:00 08/31/16 06:00 08/31/16 08/31/16 06:00 06:00 WBC 14.2 H RBC 3.77 L Hgb 10.8 L Hct 33.1 L MCV 88 MCH 28.6 MCHC 32.5 RDW 16.3 H Plt Count 168 Seg Neutrophils % 76.1 Lymphocytes % 14.5 Monocytes % 7.3 Eosinophils % 1.9 Basophils % 0.2 Absolute Neutrophils 10.8 H Absolute Lymphocytes 2.1 Absolute Monocytes 1.0 Absolute Eosinophils 0.3 Absolute Basophils 0.0 Sodium 138.0 Potassium 3.5 L Chloride 110 H Carbon Dioxide 19 L Anion Gap 9 BUN 36 H Creatinine 1.68 H Est GFR ( Amer) 48 L Est GFR (Non-Af Amer) 39 L Glucose 168 H Calcium 7.3 L Impressions: Chest X-Ray 08/28/16 22:49 IMPRESSION: No acute cardiopulmonary findings. Limited or Localized CT 08/28/16 22:49 IMPRESSION: Soft tissue component within the urinary bladder and diffuse urinary bladder wall thickening consistent with prior CT, 08/02/2016 ; differential diagnosis includes infectious, inflammatory, and neoplastic processes. Bilateral nephrostomy drainage tubes. Assessment & Plan - Diagnosis (1) Acute kidney injury Plan: Secondary to his UTI and sepsis in the background of underlying CKD stage IV. Patient is stabilizing. Renal numbers are stable. Continue present medications. Advised patient to increase his his intake. (2) CKD (chronic kidney disease), stage IV Plan: He has got an acute worsening of his CKD stage IV, which is stable. Even though he was on transient hemodialysis in [place] recently there is no acute indications for reinitiating hemodialysis of the moment. Continue present management. Monitor as an outpatient (3) Anemia Qualifiers: Anemia type: unspecified type Qualified Code(s): D64.9 - Anemia, unspecified Is this a current diagnosis for this admission?: YesPlan: Stable. No indications for renal erythropoietin at the moment. (4) Bladder cancer Qualifiers: Bladder location: unspecified site Qualified Code(s): C67.9 - Malignant neoplasm of bladder, unspecified Is this a current diagnosis for this admission?: Yes (5) Chronic obstructive pulmonary disease Qualifiers: Emphysema type: unspecified Is this a current diagnosis for this admission?: YesPlan: Stable. (6) Type 2 diabetes mellitus Qualifiers: Diabetes mellitus complication status: with unspecified complications Is this a current diagnosis for this admission?: Yes (7) Urinary tract bacterial infections Is this a current diagnosis for this admission?: Yes (8) Sepsis Qualifiers: Sepsis type: sepsis due to unspecified organism Qualified Code(s): A41.9 - Sepsis, unspecified organism Plan: From UTI manifested with altered mental status. Patient improving. Continue medications as such.
[2016-08-31] MEDS: NORMAL SALINE 1000 ML 1,000 ML IV PRN (18:11)
[2016-08-31] MEDS: ATORVASTATIN CALCIUM 40 MG TABLET PO SCH (21:38)
[2016-08-31] MEDS: CLONIDINE HCL 0.1 MG TABLET PO SCH (21:38)
[2016-08-31] MEDS: DONEPEZIL HCL 5 MG TABLET PO SCH (21:38)
[2016-09-01] MEDS: LEVOTHYROXINE SODIUM 0.05 MG TABLET PO SCH (05:24)
[2016-09-01] MEDS: LANSOPRAZOLE 15 MG TAB.RAP.DR PO SCH (05:24)
[2016-09-01 05:40] LABS: ABSOLUTE EOSINOPHILS # (AUTO) 0.3 10^3/uL (0.0-0.6); ABSOLUTE LYMPHOCYTES (AUTO) 2.2 10^3/uL (0.5-4.7); ABSOLUTE MONOCYTES (AUTO) 1.4 10^3/uL (0.1-1.4); ABSOLUTE NEUT (AUTO) 10.5 10^3/uL (1.7-8.2); BASOPHILS % (AUTO) 0.2 % (0-2); EOSINOPHILS % (AUTO) 2.1 % (0-6); HEMATOCRIT 32.1 % (37.9-51.0); HEMOGLOBIN 10.4 g/dL (13.5-17.0); HGB HCT DIFFERENCE -0.9; LYMPHOCYTES % (AUTO) 15.2 % (13-45); MEAN CORPUSCULAR HEMOGLOBIN 28.1 pg (27.0-33.4); MEAN CORPUSCULAR HGB CONC 32.4 g/dL (32.0-36.0); MEAN CORPUSCULAR VOLUME 87 fl (80-97); MONOCYTES % (AUTO) 9.5 % (3-13); RED CELL DISTRIBUTION WIDTH 15.8 % (11.5-14.0); WHITE BLOOD COUNT 14.4 10^3/uL (4.0-10.5)
[2016-09-01 06:00] LABS: BLOOD UREA NITROGEN 34 mg/dL (7-20); CALCIUM 7.2 mg/dL (8.4-10.2); CARBON DIOXIDE 21 mmol/L (22-30); CHLORIDE 112 mmol/L (98-107); CREATININE RESULT 1.73 mg/dL (0.52-1.25); GLUCOSE 162 mg/dL (75-110); SODIUM 139.7 mmol/L (137-145)
[2016-09-01 06:01] LABS: ANION GAP 7 (5-19)
[2016-09-01 06:22] LABS: POTASSIUM 4.7 mmol/L (3.6-5.0)
[2016-09-01] MEDS: FLUTICASONE NASAL SPRAY 50 MCG/SPRY 120 SPRAY/16 GM NASL SCH (09:57)
[2016-09-01] MEDS: FLUTICASONE/SALMETEROL DISKUS 250-50 MCG/DOSE IH SCH ×2 (09:57→21:06)
[2016-09-01] MEDS: SODIUM BICARBONATE 650 MG TABLET PO SCH ×2 (09:57→21:05)
[2016-09-01] MEDS: MONTELUKAST SODIUM 10 MG TABLET PO SCH (09:57)
[2016-09-01] MEDS: METOPROLOL SUCCINATE 25 MG TAB.SR.24H PO SCH (09:57)
[2016-09-01] MEDS: DOCUSATE SODIUM 100 MG CAPSULE PO SCH ×2 (09:58→17:34)
[2016-09-01] MEDS: ERTAPENEM SODIUM 1 GM in NORMAL SALINE 50 ML IV SCH (12:15)
[2016-09-01] MEDS: NORMAL SALINE 1000 ML 1,000 ML IV PRN (12:17)
--- NOTE | 2016-09-01 12:33 | PDOC PROGRESS REPORT ---
Subjective Progress Note for:: 09/01/16 Subjective:: Patient is currently feeling well. Patient still on and off confused. Patient' s otherwise denied any chest pain denied any shortness of the breath Physical Exam Vital Signs: Temp Pulse Resp BP Pulse Ox 97.9 F 67 16 145/72 H 93 09/01/16 07:47 09/01/16 07:47 09/01/16 07:47 09/01/16 07:47 09/01/16 07:47 Intake & Output 08/31/16 09/01/16 09/02/16 06:59 06:59 06:59 Intake Total 2235 2295 Output Total 2150 2790 Balance 85 -495 Weight 59.9 kg 52.1 kg General appearance: PRESENT: no acute distress Eye exam: PRESENT: PERRLA Mouth exam: PRESENT: neck supple Respiratory exam: PRESENT: clear to auscultation philomena Cardiovascular exam: PRESENT: +S1, +S2 GI/Abdominal exam: PRESENT: normal bowel sounds, soft Extremities exam: ABSENT: pedal edema Neurological exam: PRESENT: alert, awake Skin exam: PRESENT: dry Results Laboratory Results: 09/01/16 05:09 09/01/16 05:09 09/01/16 09/01/16 05:09 05:09 WBC 14.4 H RBC 3.70 L Hgb 10.4 L Hct 32.1 L MCV 87 MCH 28.1 MCHC 32.4 RDW 15.8 H Plt Count 155 Seg Neutrophils % 73.0 Lymphocytes % 15.2 Monocytes % 9.5 Eosinophils % 2.1 Basophils % 0.2 Absolute Neutrophils 10.5 H Absolute Lymphocytes 2.2 Absolute Monocytes 1.4 Absolute Eosinophils 0.3 Absolute Basophils 0.0 Sodium 139.7 Potassium 4.7 D Chloride 112 H Carbon Dioxide 21 L Anion Gap 7 BUN 34 H Creatinine 1.73 H Est GFR ( Amer) 46 L Est GFR (Non-Af Amer) 38 L Glucose 162 H Calcium 7.2 L Impressions: Chest X-Ray 08/28/16 22:49 IMPRESSION: No acute cardiopulmonary findings. Limited or Localized CT 08/28/16 22:49 IMPRESSION: Soft tissue component within the urinary bladder and diffuse urinary bladder wall thickening consistent with prior CT, 08/02/2016 ; differential diagnosis includes infectious, inflammatory, and neoplastic processes. Bilateral nephrostomy drainage tubes. Assessment & Plan - Diagnosis (1) Urinary tract bacterial infections Is this a current diagnosis for this admission?: YesPlan: Continues to IV antibiotic (2) Hypertension Is this a current diagnosis for this admission?: YesPlan: Currently stable (3) Acute renal failure Qualifiers: Acute renal failure type: unspecified Qualified Code(s): N17.9 - Acute kidney failure, unspecified Is this a current diagnosis for this admission?: YesPlan: Currently stable as per discussed with the Dr. Damian (4) Bladder cancer Qualifiers: Bladder location: unspecified site Qualified Code(s): C67.9 - Malignant neoplasm of bladder, unspecified Is this a current diagnosis for this admission?: YesPlan: Patients follow with the [facility] (5) Chronic obstructive pulmonary disease Qualifiers: Emphysema type: unspecified Is this a current diagnosis for this admission?: YesPlan: Continues on nebulizer treatments (6) Anemia Qualifiers: Anemia type: unspecified type Qualified Code(s): D64.9 - Anemia, unspecified Is this a current diagnosis for this admission?: YesPlan: Currently stable (7) Fever Qualifiers: Fever type: unspecified Qualified Code(s): R50.9 - Fever, unspecified Is this a current diagnosis for this admission?: YesPlan: From the sepsis currently all stable (8) Type 2 diabetes mellitus Qualifiers: Diabetes mellitus complication status: with unspecified complications Is this a current diagnosis for this admission?: YesPlan: Continues current medications - Time Time Spent with patient: 15-24 minutes Medications reviewed and adjusted accordingly: Yes - Inpatient Certification Medical Necessity: Need Close Monitoring Due to Risk of Patient Decompensation, Need for IV Antibiotics 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
[2016-09-01] MEDS: CLONIDINE HCL 0.1 MG TABLET PO SCH (21:05)
[2016-09-01] MEDS: DONEPEZIL HCL 5 MG TABLET PO SCH (21:05)
[2016-09-01] MEDS: ATORVASTATIN CALCIUM 40 MG TABLET PO SCH (21:05)
[2016-09-02] MEDS: LEVOTHYROXINE SODIUM 0.05 MG TABLET PO SCH (05:03)
[2016-09-02] MEDS: NORMAL SALINE 1000 ML 1,000 ML IV PRN (05:04)
[2016-09-02] MEDS: LANSOPRAZOLE 15 MG TAB.RAP.DR PO SCH (05:04)
[2016-09-02 06:08] LABS: ABSOLUTE BASOPHILS # (AUTO) 0.1 10^3/uL (0.0-0.2); ABSOLUTE EOSINOPHILS # (AUTO) 0.3 10^3/uL (0.0-0.6); ABSOLUTE LYMPHOCYTES (AUTO) 2.2 10^3/uL (0.5-4.7); ABSOLUTE MONOCYTES (AUTO) 1.3 10^3/uL (0.1-1.4); ABSOLUTE NEUT (AUTO) 11.8 10^3/uL (1.7-8.2); BASOPHILS % (AUTO) 0.4 % (0-2); EOSINOPHILS % (AUTO) 1.9 % (0-6); HEMATOCRIT 33.2 % (37.9-51.0); HEMOGLOBIN 10.8 g/dL (13.5-17.0); HGB HCT DIFFERENCE -0.8; MEAN CORPUSCULAR HEMOGLOBIN 28.6 pg (27.0-33.4); MEAN CORPUSCULAR HGB CONC 32.5 g/dL (32.0-36.0); MEAN CORPUSCULAR VOLUME 88 fl (80-97); MONOCYTES % (AUTO) 8.1 % (3-13); RED BLOOD COUNT 3.78 10^6/uL (4.35-5.55); RED CELL DISTRIBUTION WIDTH 16.4 % (11.5-14.0); SEGMENTED NEUTROPHILS % (AUTO) 75.6 % (42-78); WHITE BLOOD COUNT 15.6 10^3/uL (4.0-10.5)
[2016-09-02 06:16] LABS: ANION GAP 10 (5-19); BLOOD UREA NITROGEN 37 mg/dL (7-20); CALCIUM 7.5 mg/dL (8.4-10.2); CARBON DIOXIDE 19 mmol/L (22-30); CHLORIDE 113 mmol/L (98-107); CREATININE RESULT 1.86 mg/dL (0.52-1.25); GLUCOSE 150 mg/dL (75-110); POTASSIUM 4.8 mmol/L (3.6-5.0); SODIUM 141.8 mmol/L (137-145)
[2016-09-02] MEDS ORDERED: NORMAL SALINE 10 ML SDV (AFTER EACH USE) IV PRN (10:55)
--- NOTE | 2016-09-02 11:05 | RADIOLOGY REPORT (SQ) ---
EXAM DESCRIPTION: PICC INSERTION; U/S GUIDE FOR VASCULAR ACCESS; FLUORO/CV PLACEMENT COMPLETED DATE/TIME: 09/02/2016 10:49 am REASON FOR STUDY: iv antibiotics; IV ACCESS; IV ABX COMPARISON: Chest films 08/28/2016 FLUOROSCOPY TIME: 12 seconds 1 ultrasound and 1 digital radiographic images saved to PACS. TECHNIQUE: Fluoroscopic and ultrasound guided PICC placement. LIMITATIONS: None. PROCEDURE: After written consent and assessment were obtained, the patient was brought into the fluo roscopy room and place supine on the table. Ultrasound was used on the patient's left arm for PICC a ccess. The left arm was prepped and draped in a sterile fashion along with the ultrasound probe. The entry site was anesthetized with 1% lidocaine. A 21 gauge 7 cm needle was advanced through the skin a nd into the left basilic vein under live ultrasound guidance. An ultrasound image was saved to PACS confirming access site. A .018 guide wire was then inserted through the needle and into the venous s ystem. The needle was the removed and an 11 blade scalpel was used to make a 1cm skin incision. A 5 fr peel-away sheath was advanced over the wire and into the venous system. A measurement was then mad e using the existing wire and live fluoroscopic guidance. The wire was then removed and the trimmed. The PICC was advanced through the peel-away sheath and into the venous system. The peel-away sheath w as removed and the catheter was adhered to the patients arm with a stat lock. The catheter was then a spirated and flushed and a sterile bandage was placed over the access site. A fluoroscopic spot imag e was saved to PACS confirming the catheter tip within the superior vena cava. IMPRESSION: SUCCESSFUL PLACEMENT OF A 5 FR DUAL LUMEN 40 CM PICC IN THE left basilic VEIN. COMMENT: Patient medication list reviewed: Yes- Quality ID# [id number]:Eligible professional attests to doc umenting in the medical record they obtained, updated, or reviewed the patient's current medications. . Quality ID 145: Final reports for procedures using fluoroscopy that document radiation exposure milla jayro, or exposure time and number of fluorographic images (if radiation exposure indices are not avail able) Quality ID #76: The patient was prepped and draped using maximum sterile barrier technique including cap, mask, sterile gown, sterile gloves, a large sterile sheet, hand hygiene, and 2% Chlorhexidine fo r cutaneous antisepsis. When ultrasound is used, sterile ultrasound techniques are followed requiring sterile gel and sterile probes. TECHNICAL DOCUMENTATION: JOB ID: [id number] [employer]- All Rights Reserved
--- NOTE | 2016-09-02 11:06 | PDOC PROGRESS REPORT ---
Subjective Progress Note for:: 09/02/16 Subjective:: Patient is currently doing fair no overnight fever still little bit confused but patients denied any chest pain denied any shortness of the breath. Patient scheduled for the PICC line today Physical Exam Vital Signs: Temp Pulse Resp BP Pulse Ox 98.2 F 87 22 H 178/85 H 96 09/02/16 08:06 09/02/16 08:06 09/02/16 08:06 09/02/16 08:06 09/02/16 08:06 Intake & Output 09/01/16 09/02/16 09/03/16 06:59 06:59 06:59 Intake Total 2295 1590 Output Total 2790 1060 Balance -495 530 Weight 52.1 kg 54.8 kg General appearance: PRESENT: no acute distress Eye exam: PRESENT: PERRLA Mouth exam: PRESENT: neck supple Neck exam: ABSENT: carotid bruit, full ROM, JVD, lymphadenopathy, meningismus, tenderness, thyromegaly, tracheal deviation, tracheostomy, other Respiratory exam: ABSENT: accessory muscle use, chest wall tenderness, clear to auscultation philomena, crackles, decreased breath sounds, prolonged expiratory phas, rales, retraction, rhonchi, stridor, symmetrical, tachypnea, unlabored, wheezes , other Cardiovascular exam: PRESENT: +S1, +S2 GI/Abdominal exam: PRESENT: normal bowel sounds, soft. ABSENT: tenderness Additonal comments: Bilateral nephrostomy tube is present and the dressing is intact Extremities exam: ABSENT: pedal edema Neurological exam: PRESENT: alert, awake, oriented to person Psychiatric exam: PRESENT: normal mood Skin exam: PRESENT: dry Results Laboratory Results: 09/02/16 05:45 09/02/16 05:45 09/02/16 09/02/16 05:45 05:45 WBC 15.6 H RBC 3.78 L Hgb 10.8 L Hct 33.2 L MCV 88 MCH 28.6 MCHC 32.5 RDW 16.4 H Plt Count 155 Seg Neutrophils % 75.6 Lymphocytes % 14.0 Monocytes % 8.1 Eosinophils % 1.9 Basophils % 0.4 Absolute Neutrophils 11.8 H Absolute Lymphocytes 2.2 Absolute Monocytes 1.3 Absolute Eosinophils 0.3 Absolute Basophils 0.1 Sodium 141.8 Potassium 4.8 Chloride 113 H Carbon Dioxide 19 L Anion Gap 10 BUN 37 H Creatinine 1.86 H Est GFR ( Amer) 42 L Est GFR (Non-Af Amer) 35 L Glucose 150 H Calcium 7.5 L Impressions: Chest X-Ray 08/28/16 22:49 IMPRESSION: No acute cardiopulmonary findings. Limited or Localized CT 08/28/16 22:49 IMPRESSION: Soft tissue component within the urinary bladder and diffuse urinary bladder wall thickening consistent with prior CT, 08/02/2016 ; differential diagnosis includes infectious, inflammatory, and neoplastic processes. Bilateral nephrostomy drainage tubes. Assessment & Plan - Diagnosis (1) Urinary tract bacterial infections Is this a current diagnosis for this admission?: YesPlan: Is ESBL continues the IV Invanz and the Levaquin will put the PICC line today and probably discharge residential with the antibiotic for 10-14 days (2) Hypertension Is this a current diagnosis for this admission?: YesPlan: Currently stable (3) Acute renal failure Qualifiers: Acute renal failure type: unspecified Qualified Code(s): N17.9 - Acute kidney failure, unspecified Is this a current diagnosis for this admission?: YesPlan: Currently stable (4) Bladder cancer Qualifiers: Bladder location: unspecified site Qualified Code(s): C67.9 - Malignant neoplasm of bladder, unspecified Is this a current diagnosis for this admission?: YesPlan: Patients follow with the [facility] (5) Chronic obstructive pulmonary disease Qualifiers: Emphysema type: unspecified Is this a current diagnosis for this admission?: YesPlan: Continues on nebulizer treatments (6) Anemia Qualifiers: Anemia type: unspecified type Qualified Code(s): D64.9 - Anemia, unspecified Is this a current diagnosis for this admission?: YesPlan: Currently stable (7) Fever Qualifiers: Fever type: unspecified Qualified Code(s): R50.9 - Fever, unspecified Is this a current diagnosis for this admission?: Yes (8) Type 2 diabetes mellitus Qualifiers: Diabetes mellitus complication status: with unspecified complications Is this a current diagnosis for this admission?: YesPlan: Continues current medications - Time Time Spent with patient: 15-24 minutes Medications reviewed and adjusted accordingly: Yes Anticipated discharge: SNF Within: within 24 hours, Other - Inpatient Certification Medical Necessity: Need Close Monitoring Due to Risk of Patient Decompensation Post Hospital Care: D/C Membership Correspondent Documentation - Plan Summary Plan Summary: Continues IV antibiotics scheduled for the PICC line today and possible discharge to nursing homes
[2016-09-02] MEDS: MONTELUKAST SODIUM 10 MG TABLET PO SCH (11:29)
[2016-09-02] MEDS: DOCUSATE SODIUM 100 MG CAPSULE PO SCH ×2 (11:29→17:43)
[2016-09-02] MEDS: LEVOFLOXACIN 750 MG TABLET PO SCH (11:29)
[2016-09-02] MEDS: SODIUM BICARBONATE 650 MG TABLET PO SCH ×2 (11:29→22:13)
[2016-09-02] MEDS: FLUTICASONE NASAL SPRAY 50 MCG/SPRY 120 SPRAY/16 GM NASL SCH (11:32)
[2016-09-02] MEDS: FLUTICASONE/SALMETEROL DISKUS 250-50 MCG/DOSE IH SCH ×2 (11:32→22:13)
[2016-09-02] MEDS: TIOTROPIUM BROMIDE DPI 5 CAP/KIT (18 MCG/CAP) IH PRN (11:32)
[2016-09-02] MEDS: METOPROLOL SUCCINATE 25 MG TAB.SR.24H PO SCH (11:37)
[2016-09-02] MEDS: ERTAPENEM SODIUM 1 GM in NORMAL SALINE 50 ML IV SCH (12:45)
[2016-09-02] MEDS: IPRATROPIUM/ALBUTEROL 0.5-2.5 MG/3 ML AMPUL NEB PRN (20:53)
[2016-09-02] MEDS: CLONIDINE HCL 0.1 MG TABLET PO SCH (22:12)
[2016-09-02] MEDS: DONEPEZIL HCL 5 MG TABLET PO SCH (22:13)
[2016-09-02] MEDS: ATORVASTATIN CALCIUM 40 MG TABLET PO SCH (22:13)
[2016-09-02] MEDS: NORMAL SALINE 10 ML SDV (SCHEDULED) IV SCH (22:13)
[2016-09-03] MEDS: IPRATROPIUM/ALBUTEROL 0.5-2.5 MG/3 ML AMPUL NEB PRN ×3 (06:14→15:53)
[2016-09-03] MEDS: LANSOPRAZOLE 15 MG TAB.RAP.DR PO SCH (06:41)
[2016-09-03] MEDS: LEVOTHYROXINE SODIUM 0.05 MG TABLET PO SCH (06:41)
[2016-09-03 07:22] LABS: ABSOLUTE EOSINOPHILS # (AUTO) 0.1 10^3/uL (0.0-0.6); ABSOLUTE LYMPHOCYTES (AUTO) 4.2 10^3/uL (0.5-4.7); ABSOLUTE MONOCYTES (AUTO) 1.3 10^3/uL (0.1-1.4); ABSOLUTE NEUT (AUTO) 11.6 10^3/uL (1.7-8.2); BASOPHILS % (AUTO) 0.1 % (0-2); EOSINOPHILS % (AUTO) 0.6 % (0-6); HEMATOCRIT 32.9 % (37.9-51.0); HEMOGLOBIN 10.7 g/dL (13.5-17.0); HGB HCT DIFFERENCE -0.8; LYMPHOCYTES % (AUTO) 24.1 % (13-45); MEAN CORPUSCULAR HEMOGLOBIN 28.2 pg (27.0-33.4); MEAN CORPUSCULAR HGB CONC 32.4 g/dL (32.0-36.0); MEAN CORPUSCULAR VOLUME 87 fl (80-97); MONOCYTES % (AUTO) 7.6 % (3-13); RED BLOOD COUNT 3.79 10^6/uL (4.35-5.55); RED CELL DISTRIBUTION WIDTH 16.1 % (11.5-14.0); SEGMENTED NEUTROPHILS % (AUTO) 67.6 % (42-78); WHITE BLOOD COUNT 17.2 10^3/uL (4.0-10.5)
[2016-09-03 07:47] LABS: ANION GAP 12 (5-19); BLOOD UREA NITROGEN 36 mg/dL (7-20); CALCIUM 7.3 mg/dL (8.4-10.2); CARBON DIOXIDE 19 mmol/L (22-30); CHLORIDE 111 mmol/L (98-107); CREATININE RESULT 1.74 mg/dL (0.52-1.25); GLUCOSE 197 mg/dL (75-110); SODIUM 141.6 mmol/L (137-145)
[2016-09-03 07:48] LABS: POTASSIUM 4.2 mmol/L (3.6-5.0)
--- NOTE | 2016-09-03 10:44 | PDOC PROGRESS REPORT ---
Subjective Progress Note for:: 09/03/16 Subjective:: Patient is currently doing fair have a quite a bit of wheezing this morning. Patient's denied any chest pain denied any shortness of the breath. No overnight fever Physical Exam Vital Signs: Temp Pulse Resp BP Pulse Ox 98.0 F 74 24 H 157/71 H 100 09/03/16 07:32 09/03/16 07:32 09/03/16 07:32 09/03/16 07:32 09/03/16 07:32 Intake & Output 09/02/16 09/03/16 09/04/16 06:59 06:59 06:59 Intake Total 1590 761 Output Total 1060 1375 Balance 530 -614 Weight 54.8 kg 55.1 kg General appearance: PRESENT: no acute distress, well-developed, well-nourished Head exam: PRESENT: atraumatic, normocephalic Eye exam: PRESENT: conjunctiva pink, EOMI, PERRLA. ABSENT: scleral icterus Ear exam: PRESENT: normal external ear exam Mouth exam: PRESENT: moist, tongue midline Neck exam: PRESENT: full ROM. ABSENT: carotid bruit, JVD, lymphadenopathy, thyromegaly Respiratory exam: PRESENT: wheezes Cardiovascular exam: PRESENT: RRR. ABSENT: diastolic murmur, rubs, systolic murmur Pulses: PRESENT: normal dorsalis pedis pul, +2 pedal pulses bilateral Vascular exam: PRESENT: normal capillary refill GI/Abdominal exam: PRESENT: normal bowel sounds, soft. ABSENT: distended, guarding, mass, organolmegaly, rebound, tenderness Rectal exam: PRESENT: deferred Neurological exam: PRESENT: alert, awake, oriented to person, oriented to place , oriented to time, oriented to situation, CN II-XII grossly intact. ABSENT: motor sensory deficit Psychiatric exam: PRESENT: appropriate affect, normal mood. ABSENT: homicidal ideation, suicidal ideation Skin exam: PRESENT: dry, intact, warm. ABSENT: cyanosis, rash Results Laboratory Results: 09/03/16 06:55 09/03/16 06:55 09/03/16 09/03/16 06:55 06:55 WBC 17.2 H RBC 3.79 L Hgb 10.7 L Hct 32.9 L MCV 87 MCH 28.2 MCHC 32.4 RDW 16.1 H Plt Count 148 L Seg Neutrophils % 67.6 Lymphocytes % 24.1 Monocytes % 7.6 Eosinophils % 0.6 Basophils % 0.1 Absolute Neutrophils 11.6 H Absolute Lymphocytes 4.2 Absolute Monocytes 1.3 Absolute Eosinophils 0.1 Absolute Basophils 0.0 Sodium 141.6 Potassium 4.2 Chloride 111 H Carbon Dioxide 19 L Anion Gap 12 BUN 36 H Creatinine 1.74 H Est GFR ( Amer) 46 L Est GFR (Non-Af Amer) 38 L Glucose 197 H Calcium 7.3 L Impressions: Chest X-Ray 08/28/16 22:49 IMPRESSION: No acute cardiopulmonary findings. Limited or Localized CT 08/28/16 22:49 IMPRESSION: Soft tissue component within the urinary bladder and diffuse urinary bladder wall thickening consistent with prior CT, 08/02/2016 ; differential diagnosis includes infectious, inflammatory, and neoplastic processes. Bilateral nephrostomy drainage tubes. Guidance Fluoroscopy 09/02/16 00:00 IMPRESSION: SUCCESSFUL PLACEMENT OF A 5 FR DUAL LUMEN 40 CM PICC IN THE left basilic VEIN. Interventional Vascular Procedure 09/02/16 00:00 IMPRESSION: SUCCESSFUL PLACEMENT OF A 5 FR DUAL LUMEN 40 CM PICC IN THE left basilic VEIN. PICC Line Insertion 09/02/16 00:00 IMPRESSION: SUCCESSFUL PLACEMENT OF A 5 FR DUAL LUMEN 40 CM PICC IN THE left basilic VEIN. Assessment & Plan - Diagnosis (1) Urinary tract bacterial infections Is this a current diagnosis for this admission?: YesPlan: Is ESBL continues the IV Invanz and the Levaquin will put the PICC line today and probably discharge detention with the antibiotic for 10-14 days (2) Hypertension Is this a current diagnosis for this admission?: YesPlan: Currently stable (3) Acute renal failure Qualifiers: Acute renal failure type: unspecified Qualified Code(s): N17.9 - Acute kidney failure, unspecified Is this a current diagnosis for this admission?: YesPlan: Currently stable (4) Bladder cancer Qualifiers: Bladder location: unspecified site Qualified Code(s): C67.9 - Malignant neoplasm of bladder, unspecified Is this a current diagnosis for this admission?: YesPlan: Patients follow with the [facility] (5) Chronic obstructive pulmonary disease Qualifiers: Emphysema type: unspecified Is this a current diagnosis for this admission?: YesPlan: With acute exacerbations will get the chest x-ray start on the Solu-Medrol and the respiratory treatment (6) Anemia Qualifiers: Anemia type: unspecified type Qualified Code(s): D64.9 - Anemia, unspecified Is this a current diagnosis for this admission?: YesPlan: Currently stable (7) Fever Qualifiers: Fever type: unspecified Qualified Code(s): R50.9 - Fever, unspecified Is this a current diagnosis for this admission?: YesPlan: From the sepsis currently all stable (8) Type 2 diabetes mellitus Qualifiers: Diabetes mellitus complication status: with unspecified complications Is this a current diagnosis for this admission?: Yes - Time Time Spent with patient: 15-24 minutes Medications reviewed and adjusted accordingly: Yes Anticipated discharge: SNF Within: Other - Inpatient Certification Medical Necessity: Need Close Monitoring Due to Risk of Patient Decompensation, Need for IV Antibiotics 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
[2016-09-03] MEDS: METOPROLOL SUCCINATE 25 MG TAB.SR.24H PO SCH (11:02)
[2016-09-03] MEDS: MONTELUKAST SODIUM 10 MG TABLET PO SCH (11:02)
[2016-09-03] MEDS: DOCUSATE SODIUM 100 MG CAPSULE PO SCH ×2 (11:02→17:40)
[2016-09-03] MEDS: FLUTICASONE NASAL SPRAY 50 MCG/SPRY 120 SPRAY/16 GM NASL SCH (11:03)
[2016-09-03] MEDS: SODIUM BICARBONATE 650 MG TABLET PO SCH ×2 (11:03→22:40)
[2016-09-03] MEDS: FLUTICASONE/SALMETEROL DISKUS 250-50 MCG/DOSE IH SCH ×2 (11:04→22:39)
[2016-09-03] MEDS: TIOTROPIUM BROMIDE DPI 5 CAP/KIT (18 MCG/CAP) IH PRN (11:04)
[2016-09-03] MEDS: NORMAL SALINE 10 ML SDV (SCHEDULED) IV SCH ×2 (11:06→22:40)
--- NOTE | 2016-09-03 12:51 | RADIOLOGY REPORT (SQ) ---
EXAM DESCRIPTION: CHEST SINGLE VIEW COMPLETED DATE/TIME: 09/03/2016 12:17 pm REASON FOR STUDY: whezzing COMPARISON: Chest films 08/28/2016, 08/11/2015 EXAM PARAMETERS: NUMBER OF VIEWS: One view. TECHNIQUE: Single frontal radiographic view of the chest acquired. RADIATION DOSE: NA LIMITATIONS: None. FINDINGS: LUNGS AND PLEURA: Few Stefano lines at both bases, question interstitial edema. Mild pulmo nary vascular prominence. Few air bronchograms are seen in the right and left retrocardiac regions, atelectasis versus pneumoni a. This is new compared to prior studies. No gross pleural effusion or pneumothorax. MEDIASTINUM AND HILAR STRUCTURES: No masses. Contour normal. HEART AND VASCULAR STRUCTURES: Stable moderate cardiomegaly BONES: Old healed right posterior 7th rib fracture. Old right lower lateral healed 9th rib fracture. HARDWARE: Left PICC line tip at the junction of the superior vena cava and right atrium OTHER: No other significant finding. IMPRESSION: Stefano lines at both bases, worrisome for mild interstitial pulmonary edema. New air bronchograms in the right and left retrocardiac regions, atelectasis versus pneumonia. TECHNICAL DOCUMENTATION: JOB ID: [id number]
[2016-09-03] MEDS ORDERED: FUROSEMIDE INJ/PF 40 MG/4 ML SDV ONE (13:04)
[2016-09-03] MEDS: METHYLPREDNISOLONE INJ 40 MG/1 ML SDV IV SCH ×2 (13:16→22:39)
[2016-09-03] MEDS: ERTAPENEM SODIUM 1 GM in NORMAL SALINE 50 ML IV SCH (13:16)
[2016-09-03] MEDS: INSULIN LISPRO 100 UNIT/ML 3 ML VIAL SUBCUT PRN (17:38)
[2016-09-03] MEDS ORDERED: FUROSEMIDE INJ/PF 20 MG/2 ML SDV IV ONE (19:45)
[2016-09-03] MEDS: CLONIDINE HCL 0.1 MG TABLET PO SCH (22:39)
[2016-09-03] MEDS: ATORVASTATIN CALCIUM 40 MG TABLET PO SCH (22:40)
[2016-09-03] MEDS: DONEPEZIL HCL 5 MG TABLET PO SCH (22:40)
[2016-09-04] MEDS: METHYLPREDNISOLONE INJ 40 MG/1 ML SDV IV SCH ×3 (05:36→22:58)
[2016-09-04] MEDS: LEVOTHYROXINE SODIUM 0.05 MG TABLET PO SCH (05:37)
[2016-09-04] MEDS: LANSOPRAZOLE 15 MG TAB.RAP.DR PO SCH (05:37)
[2016-09-04 06:06] LABS: ANION GAP 11 (5-19); BLOOD UREA NITROGEN 39 mg/dL (7-20); CALCIUM 7.2 mg/dL (8.4-10.2); CARBON DIOXIDE 21 mmol/L (22-30); CHLORIDE 109 mmol/L (98-107); GLUCOSE 223 mg/dL (75-110); POTASSIUM 3.9 mmol/L (3.6-5.0); SODIUM 140.9 mmol/L (137-145)
[2016-09-04] MEDS: METOPROLOL SUCCINATE 25 MG TAB.SR.24H PO SCH (11:13)
[2016-09-04] MEDS: FUROSEMIDE INJ/PF 20 MG/2 ML SDV IV SCH (11:13)
[2016-09-04] MEDS: DOCUSATE SODIUM 100 MG CAPSULE PO SCH ×2 (11:13→18:30)
[2016-09-04] MEDS: LEVOFLOXACIN 750 MG TABLET PO SCH (11:14)
[2016-09-04] MEDS: SODIUM BICARBONATE 650 MG TABLET PO SCH ×2 (11:14→22:58)
[2016-09-04] MEDS: FLUTICASONE/SALMETEROL DISKUS 250-50 MCG/DOSE IH SCH ×2 (11:14→22:58)
[2016-09-04] MEDS: MONTELUKAST SODIUM 10 MG TABLET PO SCH (11:14)
[2016-09-04] MEDS: FLUTICASONE NASAL SPRAY 50 MCG/SPRY 120 SPRAY/16 GM NASL SCH (11:15)
[2016-09-04] MEDS: TIOTROPIUM BROMIDE DPI 5 CAP/KIT (18 MCG/CAP) IH PRN (11:15)
[2016-09-04] MEDS: NORMAL SALINE 10 ML SDV (SCHEDULED) IV SCH ×2 (11:16→22:59)
--- NOTE | 2016-09-04 14:30 | PDOC PROGRESS REPORT ---
Subjective Progress Note for:: 09/04/16 Subjective:: pt is getting better nocp nosob whezzing getting better Physical Exam Vital Signs: Temp Pulse Resp BP Pulse Ox 97.5 F 65 20 154/69 H 95 09/04/16 03:54 09/04/16 07:00 09/04/16 03:54 09/04/16 03:54 09/04/16 03:54 Intake & Output 09/03/16 09/04/16 09/05/16 06:59 06:59 06:59 Intake Total 761 486 Output Total 1370 3781 Balance -614 -1829 Weight 55.1 kg 50.5 kg General appearance: PRESENT: no acute distress, well-developed, well-nourished Head exam: PRESENT: atraumatic, normocephalic Eye exam: PRESENT: conjunctiva pink, EOMI, PERRLA. ABSENT: scleral icterus Ear exam: PRESENT: normal external ear exam Mouth exam: PRESENT: moist, tongue midline Neck exam: PRESENT: full ROM. ABSENT: carotid bruit, JVD, lymphadenopathy, thyromegaly Cardiovascular exam: PRESENT: RRR. ABSENT: diastolic murmur, rubs, systolic murmur Pulses: PRESENT: normal dorsalis pedis pul, +2 pedal pulses bilateral Vascular exam: PRESENT: normal capillary refill GI/Abdominal exam: PRESENT: normal bowel sounds, soft. ABSENT: distended, guarding, mass, organolmegaly, rebound, tenderness Rectal exam: PRESENT: deferred Neurological exam: PRESENT: alert, awake, oriented to person, oriented to place , oriented to time, oriented to situation, CN II-XII grossly intact. ABSENT: motor sensory deficit Psychiatric exam: PRESENT: appropriate affect, normal mood. ABSENT: homicidal ideation, suicidal ideation Skin exam: PRESENT: dry, intact, warm. ABSENT: cyanosis, rash Results Laboratory Results: 09/03/16 06:55 09/04/16 05:40 09/04/16 05:40 Sodium 140.9 Potassium 3.9 Chloride 109 H Carbon Dioxide 21 L Anion Gap 11 BUN 39 H Creatinine 1.80 H Est GFR ( Amer) 44 L Est GFR (Non-Af Amer) 36 L Glucose 223 H Calcium 7.2 L Impressions: Limited or Localized CT 08/28/16 22:49 IMPRESSION: Soft tissue component within the urinary bladder and diffuse urinary bladder wall thickening consistent with prior CT, 08/02/2016 ; differential diagnosis includes infectious, inflammatory, and neoplastic processes. Bilateral nephrostomy drainage tubes. Guidance Fluoroscopy 09/02/16 00:00 IMPRESSION: SUCCESSFUL PLACEMENT OF A 5 FR DUAL LUMEN 40 CM PICC IN THE left basilic VEIN. Interventional Vascular Procedure 09/02/16 00:00 IMPRESSION: SUCCESSFUL PLACEMENT OF A 5 FR DUAL LUMEN 40 CM PICC IN THE left basilic VEIN. PICC Line Insertion 09/02/16 00:00 IMPRESSION: SUCCESSFUL PLACEMENT OF A 5 FR DUAL LUMEN 40 CM PICC IN THE left basilic VEIN. Chest X-Ray 09/03/16 00:00 IMPRESSION: Stefano lines at both bases, worrisome for mild interstitial pulmonary edema. New air bronchograms in the right and left retrocardiac regions, atelectasis versus pneumonia. Assessment & Plan - Diagnosis (1) Urinary tract bacterial infections Is this a current diagnosis for this admission?: YesPlan: Is ESBL continues the IV Invanz and the Levaquin will put the PICC line today and probably discharge intermediate with the antibiotic for 10-14 days (2) Hypertension Is this a current diagnosis for this admission?: YesPlan: Currently stable (3) Acute renal failure Qualifiers: Acute renal failure type: unspecified Qualified Code(s): N17.9 - Acute kidney failure, unspecified Is this a current diagnosis for this admission?: YesPlan: Currently stable (4) Bladder cancer Qualifiers: Bladder location: unspecified site Qualified Code(s): C67.9 - Malignant neoplasm of bladder, unspecified Is this a current diagnosis for this admission?: YesPlan: Patients follow with the [facility] (5) Chronic obstructive pulmonary disease Qualifiers: Emphysema type: unspecified Is this a current diagnosis for this admission?: YesPlan: With acute exacerbations will get the chest x-ray start on the Solu-Medrol and the respiratory treatment (6) Anemia Qualifiers: Anemia type: unspecified type Qualified Code(s): D64.9 - Anemia, unspecified Is this a current diagnosis for this admission?: YesPlan: Currently stable (7) Fever Qualifiers: Fever type: unspecified Qualified Code(s): R50.9 - Fever, unspecified Is this a current diagnosis for this admission?: Yes (8) Type 2 diabetes mellitus Qualifiers: Diabetes mellitus complication status: with unspecified complications Is this a current diagnosis for this admission?: YesPlan: Continues current medications - Time Time Spent with patient: 15-24 minutes Medications reviewed and adjusted accordingly: Yes Anticipated discharge: SNF Within: within 24 hours - Inpatient Certification Medical Necessity: Need Close Monitoring Due to Risk of Patient Decompensation, Need for IV Antibiotics Post Hospital Care: D/C Adoption Worker Documentation - d/w daughter about pt condition pt is dnr
[2016-09-04] MEDS: ERTAPENEM SODIUM 1 GM in NORMAL SALINE 50 ML IV SCH (15:28)
[2016-09-04] MEDS: INSULIN LISPRO 100 UNIT/ML 3 ML VIAL SUBCUT PRN ×2 (15:37→18:50)
[2016-09-04] MEDS: CLONIDINE HCL 0.1 MG TABLET PO SCH (22:58)
[2016-09-04] MEDS: DONEPEZIL HCL 5 MG TABLET PO SCH (22:58)
[2016-09-04] MEDS: ATORVASTATIN CALCIUM 40 MG TABLET PO SCH (22:58)
[2016-09-05] MEDS: IPRATROPIUM/ALBUTEROL 0.5-2.5 MG/3 ML AMPUL NEB PRN (04:06)
[2016-09-05] MEDS: LANSOPRAZOLE 15 MG TAB.RAP.DR PO SCH (06:03)
[2016-09-05] MEDS: METHYLPREDNISOLONE INJ 40 MG/1 ML SDV IV SCH ×3 (06:03→22:24)
[2016-09-05] MEDS: LEVOTHYROXINE SODIUM 0.05 MG TABLET PO SCH (06:03)
[2016-09-05 06:34] LABS: ANION GAP 10 (5-19); BLOOD UREA NITROGEN 52 mg/dL (7-20); CALCIUM 7.3 mg/dL (8.4-10.2); CARBON DIOXIDE 24 mmol/L (22-30); CHLORIDE 110 mmol/L (98-107); GLUCOSE 126 mg/dL (75-110); POTASSIUM 3.9 mmol/L (3.6-5.0); SODIUM 143.8 mmol/L (137-145)
--- NOTE | 2016-09-05 09:21 | PDOC PROGRESS REPORT ---
Subjective Progress Note for:: 09/05/16 Subjective:: Patient is currently doing fair. No chest pain no shortness of the breath. Patient's walk with the physical therapy Discussed with the daughter very extensively about the patient's current conditions and patient and daughter can be a DNR/DNI and the daughter does not want to go for any aggressive surgical management for the bladder cancer and pretty much suggest the comfort care Physical Exam Vital Signs: Temp Pulse Resp BP Pulse Ox 98.5 F 74 22 H 148/76 H 92 09/05/16 08:28 09/05/16 08:28 09/05/16 08:28 09/05/16 08:28 09/05/16 08:28 Intake & Output 09/04/16 09/05/16 09/06/16 06:59 06:59 06:59 Intake Total 486 268 Output Total 2825 1375 Balance -2339 -1107 Weight 50.5 kg 53.1 kg General appearance: PRESENT: no acute distress, well-developed, well-nourished Head exam: PRESENT: atraumatic, normocephalic Eye exam: PRESENT: conjunctiva pink, EOMI, PERRLA. ABSENT: scleral icterus Ear exam: PRESENT: normal external ear exam Mouth exam: PRESENT: moist, tongue midline Neck exam: PRESENT: full ROM. ABSENT: carotid bruit, JVD, lymphadenopathy, thyromegaly Respiratory exam: PRESENT: clear to auscultation philomena Cardiovascular exam: PRESENT: RRR. ABSENT: diastolic murmur, rubs, systolic murmur Pulses: PRESENT: normal dorsalis pedis pul, +2 pedal pulses bilateral Vascular exam: PRESENT: normal capillary refill GI/Abdominal exam: PRESENT: normal bowel sounds, soft. ABSENT: distended, guarding, mass, organolmegaly, rebound, tenderness Rectal exam: PRESENT: deferred Neurological exam: PRESENT: alert, awake, oriented to person, oriented to place , oriented to time, oriented to situation, CN II-XII grossly intact. ABSENT: motor sensory deficit Psychiatric exam: PRESENT: appropriate affect, normal mood. ABSENT: homicidal ideation, suicidal ideation Skin exam: PRESENT: dry, intact, warm. ABSENT: cyanosis, rash Results Laboratory Results: 09/03/16 06:55 09/05/16 06:04 09/05/16 06:04 Sodium 143.8 Potassium 3.9 Chloride 110 H Carbon Dioxide 24 Anion Gap 10 BUN 52 H Creatinine 2.10 H Est GFR ( Amer) 37 L Est GFR (Non-Af Amer) 30 L Glucose 126 H Calcium 7.3 L Impressions: Limited or Localized CT 08/28/16 22:49 IMPRESSION: Soft tissue component within the urinary bladder and diffuse urinary bladder wall thickening consistent with prior CT, 08/02/2016 ; differential diagnosis includes infectious, inflammatory, and neoplastic processes. Bilateral nephrostomy drainage tubes. Guidance Fluoroscopy 09/02/16 00:00 IMPRESSION: SUCCESSFUL PLACEMENT OF A 5 FR DUAL LUMEN 40 CM PICC IN THE left basilic VEIN. Interventional Vascular Procedure 09/02/16 00:00 IMPRESSION: SUCCESSFUL PLACEMENT OF A 5 FR DUAL LUMEN 40 CM PICC IN THE left basilic VEIN. PICC Line Insertion 09/02/16 00:00 IMPRESSION: SUCCESSFUL PLACEMENT OF A 5 FR DUAL LUMEN 40 CM PICC IN THE left basilic VEIN. Chest X-Ray 09/03/16 00:00 IMPRESSION: Stefano lines at both bases, worrisome for mild interstitial pulmonary edema. New air bronchograms in the right and left retrocardiac regions, atelectasis versus pneumonia. Assessment & Plan - Diagnosis (1) Urinary tract bacterial infections Is this a current diagnosis for this admission?: YesPlan: Is ESBL continues the IV Invanz and the Levaquin will put the PICC line today and probably discharge fdc with the antibiotic for 10-14 days (2) Hypertension Is this a current diagnosis for this admission?: YesPlan: Currently stable (3) Acute renal failure Qualifiers: Acute renal failure type: unspecified Qualified Code(s): N17.9 - Acute kidney failure, unspecified Is this a current diagnosis for this admission?: YesPlan: Currently stable (4) Bladder cancer Qualifiers: Bladder location: unspecified site Qualified Code(s): C67.9 - Malignant neoplasm of bladder, unspecified Is this a current diagnosis for this admission?: YesPlan: Patients do not want to go for any [facility] for any aggressive management discussed with the daughter about that as per discussed with the urology is more palliative care (5) Chronic obstructive pulmonary disease Qualifiers: Emphysema type: unspecified Is this a current diagnosis for this admission?: YesPlan: With acute exacerbations will get the chest x-ray start on the Solu-Medrol and the respiratory treatment (6) Anemia Qualifiers: Anemia type: unspecified type Qualified Code(s): D64.9 - Anemia, unspecified Is this a current diagnosis for this admission?: YesPlan: Currently stable (7) Fever Qualifiers: Fever type: unspecified Qualified Code(s): R50.9 - Fever, unspecified Is this a current diagnosis for this admission?: Yes (8) Type 2 diabetes mellitus Qualifiers: Diabetes mellitus complication status: with unspecified complications Is this a current diagnosis for this admission?: Yes - Time Time Spent with patient: 15-24 minutes Medications reviewed and adjusted accordingly: Yes Anticipated discharge: SNF Within: within 24 hours - Inpatient Certification Medical Necessity: Need Close Monitoring Due to Risk of Patient Decompensation, Need for IV Antibiotics Post Hospital Care: D/C Stock Checker Documentation - Plan Summary Plan Summary: cont curr med
[2016-09-05] MEDS: SODIUM BICARBONATE 650 MG TABLET PO SCH ×2 (10:46→22:23)
[2016-09-05] MEDS: MONTELUKAST SODIUM 10 MG TABLET PO SCH (10:46)
[2016-09-05] MEDS: FUROSEMIDE INJ/PF 20 MG/2 ML SDV IV SCH (10:46)
[2016-09-05] MEDS: METOPROLOL SUCCINATE 25 MG TAB.SR.24H PO SCH (10:47)
[2016-09-05] MEDS: NORMAL SALINE 10 ML SDV (SCHEDULED) IV SCH ×2 (10:48→22:24)
[2016-09-05] MEDS: DOCUSATE SODIUM 100 MG CAPSULE PO SCH ×2 (10:49→17:48)
[2016-09-05] MEDS: FLUTICASONE NASAL SPRAY 50 MCG/SPRY 120 SPRAY/16 GM NASL SCH (10:49)
[2016-09-05] MEDS: FLUTICASONE/SALMETEROL DISKUS 250-50 MCG/DOSE IH SCH ×2 (10:49→22:24)
[2016-09-05] MEDS: ERTAPENEM SODIUM 1 GM in NORMAL SALINE 50 ML IV SCH (13:40)
[2016-09-05] MEDS: CLONIDINE HCL 0.1 MG TABLET PO SCH (22:23)
[2016-09-05] MEDS: ATORVASTATIN CALCIUM 40 MG TABLET PO SCH (22:23)
[2016-09-05] MEDS: DONEPEZIL HCL 5 MG TABLET PO SCH (22:23)
[2016-09-06] MEDS: METHYLPREDNISOLONE INJ 40 MG/1 ML SDV IV SCH ×2 (06:01→13:51)
[2016-09-06] MEDS: LEVOTHYROXINE SODIUM 0.05 MG TABLET PO SCH (06:01)
[2016-09-06] MEDS: LANSOPRAZOLE 15 MG TAB.RAP.DR PO SCH (06:01)
--- NOTE | 2016-09-06 08:21 | PDOC TRANSFER SUMMARY ---
General - Admit/Disc Date/PCP Admission Date/Primary Care Provider: 08/29/16 06:33 KASHIF PIERCE MD Discharge Date: 09/06/16 - Discharge Diagnosis (1) Urinary tract bacterial infections Is this a current diagnosis for this admission?: YesSummary: From the nephrostomy in the urosepsis and continues to intracranial for 14 days IV (2) Hypertension Is this a current diagnosis for this admission?: YesSummary: Continues current medication (3) Acute renal failure Is this a current diagnosis for this admission?: YesSummary: Currently stable (4) Bladder cancer Is this a current diagnosis for this admission?: YesSummary: Patient's currently have a nephrostomy tube and currently see the [facility] but urology and according to the urology patient's needs to go to the [facility] for the bladder surgery discussed with the patient and the daughter and they do not want to go for more aggressive surgical treatments and basically understand pretty much more comfort care type of the treatments (5) Chronic obstructive pulmonary disease Is this a current diagnosis for this admission?: YesSummary: Continues current inhaler (6) Anemia Is this a current diagnosis for this admission?: YesSummary: Currently stable (7) Fever Is this a current diagnosis for this admission?: YesSummary: Resolved (8) Type 2 diabetes mellitus Is this a current diagnosis for this admission?: YesSummary: Patient is not a very good appetite just continues a sliding scale - Additional Information Discharge Diet: Diabetic Home Medications: Atorvastatin Calcium [Lipitor 40 mg Tablet] 40 mg PO DAILY 08/29/16 Clonidine HCl [Catapres 0.1 mg Tablet] 0.1 mg PO QAM 08/29/16 Clonidine HCl [Catapres 0.1 mg Tablet] 0.1 mg PO QHS 08/29/16 Donepezil HCl [Aricept] 10 mg PO QHS 08/29/16 Fluticasone Propionate [Flonase Nasal [place] 50 Mcg/[place] 16 gm] 1 spray NASL DAILY 08/29/16 Fluticasone/Salmeterol [Advair 250-50 Diskus 14 Dose/Diskus] 1 inh IH BID Furosemide [Lasix 20 mg Tablet] 20 mg PO DAILY 08/29/16 Ipratropium/Albuterol Sulfate [Duoneb 3 ml Ampul] 3 ml NEB [id number] PRN 08/29/16 Lansoprazole [Prevacid 15 mg Odt Tablet] 15 mg PO DAILY 08/29/16 Levothyroxine Sodium [Synthroid 0.05 mg Tablet] 50 mcg PO QAM 08/29/16 Metoprolol Succinate [Toprol Xl] 25 mg PO DAILY 08/29/16 Montelukast Sodium [Singulair] 10 mg PO DAILY 08/29/16 Tiotropium [place] [Spiriva Handihaler 18 mcg/dose (30 Dose)] 1 cap IH DAILYP PRN 08/29/16 Doxycycline Hyclate 100 mg PO DAILY #10 tablet. 09/06/16 Ertapenem Sodium [Invanz Inj 1 gm Vial] 1 gm IV DAILY@1300 #14 vial 09/06/16 Insulin Lispro [Humalog Insulin (Lispro) 100 unit/mL] 0 - 12 unit SUBCUT ACHSP PRN #0 unit 09/06/16 History of Present Illness Admission Date/PCP: 08/29/16 06:33 KASHIF PIERCE MD History of Present Illness: JAIDA BLISS is a 81 year old male with a history of diabetes mellitus , hypertension , CKD stage III with a base creatinine around 1.5 Who recently developed CA of the bladder with bilateral hydronephrosis. Patient has gone on to have bilateral nephrostomy tube and was advised to go to [facility] for further surgery. However as per discussion is done with the treating nurse the daughter has decided not to go that distance. Patient was admitted with altered mental status, Fever or chills and was found to be having UTI with sepsis. As per the treating nurse patient is doing lots better at the current moment.He still has intermittent periods of confusion more so at night.Patient is unable to give me a proper history therefore chart review was done.Apparently,Has a history of transient hemodialysis when he was at the [facility]. Patient has been begun on antibiotics and has responded quite well. He has a functioning bilateral nephrostomy tubes. Patient denies any history of chest pain shortness of breath. Nausea and abdominal pains fever chills.Lab shows stable creatinine. Hospital Course Hospital Course: This is a 81-year-old male with a significant history of the bladder cancer is currently see a new but urology and bilateral nephrostomy tubes and the need to further surgery but patients do not want to go and the daughter do not want to go because of the overall patient had conditions came to the emergency department because of the fever and chills and patient have a diagnosis with the urosepsis and admitting in the hospital and IV antibiotic. Patient's blood cultures gross ESBL and put on IV Invanz. Patient also have acute renal failure on chronic kidney disease And Dr. Damian was consulted for that patient also have a some mild diastolic congestive heart failure And also COPD which currently treated with appropriate medications. Patients at this points very extensive discussions with the daughter and the patient currently DNR and DNI and pretty much more palliative care and more any aggressive care and at this point patient is discharged to the [facility] and continues to IV antibiotic for the PICC line for another 2 weeks patient's other medical problem is quite stable. . Patients follow with the new but urology for nephrostomy tubes and see how the patient is due for the next couple weeks. Patient overall prognosis is very poor discussed with the patient and the daughter understand very well and mortality the palliative care in the [facility]. Physical Exam Vital Signs: Temp Pulse Resp BP Pulse Ox 97.8 F 73 18 178/80 H 97 09/06/16 04:17 09/06/16 07:00 09/06/16 04:00 09/06/16 04:17 09/06/16 04:17 Intake & Output 09/05/16 09/06/16 09/07/16 06:59 06:59 06:59 Intake Total 268 675 Output Total 1375 825 Balance -1107 -150 Weight 53.1 kg General appearance: PRESENT: no acute distress Head exam: PRESENT: normocephalic Eye exam: PRESENT: PERRLA Mouth exam: PRESENT: neck supple Respiratory exam: PRESENT: clear to auscultation philomena Cardiovascular exam: PRESENT: +S1, +S2 GI/Abdominal exam: PRESENT: normal bowel sounds, soft Musculoskeletal exam: PRESENT: ambulatory Neurological exam: PRESENT: alert, awake, oriented to person Psychiatric exam: PRESENT: anxious, depressed Skin exam: PRESENT: dry - The Results Laboratory Results: 09/03/16 06:55 09/05/16 06:04 Impressions: Limited or Localized CT 08/28/16 22:49 IMPRESSION: Soft tissue component within the urinary bladder and diffuse urinary bladder wall thickening consistent with prior CT, 08/02/2016 ; differential diagnosis includes infectious, inflammatory, and neoplastic processes. Bilateral nephrostomy drainage tubes. Guidance Fluoroscopy 09/02/16 00:00 IMPRESSION: SUCCESSFUL PLACEMENT OF A 5 FR DUAL LUMEN 40 CM PICC IN THE left basilic VEIN. Interventional Vascular Procedure 09/02/16 00:00 IMPRESSION: SUCCESSFUL PLACEMENT OF A 5 FR DUAL LUMEN 40 CM PICC IN THE left basilic VEIN. PICC Line Insertion 09/02/16 00:00 IMPRESSION: SUCCESSFUL PLACEMENT OF A 5 FR DUAL LUMEN 40 CM PICC IN THE left basilic VEIN. Chest X-Ray 09/03/16 00:00 IMPRESSION: Stefano lines at both bases, worrisome for mild interstitial pulmonary edema. New air bronchograms in the right and left retrocardiac regions, atelectasis versus pneumonia. Transfer Plan - Time Spent with Patient Time spent with patient: Greater than 30 Minutes Plan Time Spent: Greater than 30 Minutes - Patient's discharge with IV antibiotic. Check a CBC and Chem-7 in 1 week. physical therapy Daily. Fall precautions. Make appointment to see the urology as outpatient. Overall prognosis is very poor. As per discussed with the patient and the family more towards palliative care
[2016-09-06] MEDS: FUROSEMIDE INJ/PF 20 MG/2 ML SDV IV SCH (10:08)
[2016-09-06] MEDS: SODIUM BICARBONATE 650 MG TABLET PO SCH (10:09)
[2016-09-06] MEDS: FLUTICASONE NASAL SPRAY 50 MCG/SPRY 120 SPRAY/16 GM NASL SCH (10:09)
[2016-09-06] MEDS: METOPROLOL SUCCINATE 25 MG TAB.SR.24H PO SCH (10:09)
[2016-09-06] MEDS: TIOTROPIUM BROMIDE DPI 5 CAP/KIT (18 MCG/CAP) IH PRN (10:09)
[2016-09-06] MEDS: NORMAL SALINE 10 ML SDV (SCHEDULED) IV SCH (10:09)
[2016-09-06] MEDS: MONTELUKAST SODIUM 10 MG TABLET PO SCH (10:10)
[2016-09-06] MEDS: LEVOFLOXACIN 750 MG TABLET PO SCH (10:10)
[2016-09-06] MEDS: INSULIN LISPRO 100 UNIT/ML 3 ML VIAL SUBCUT PRN (10:11)
[2016-09-06] MEDS: DOCUSATE SODIUM 100 MG CAPSULE PO SCH ×2 (10:17→17:28)
[2016-09-06] MEDS: ERTAPENEM SODIUM 1 GM in NORMAL SALINE 50 ML IV SCH (12:26)
[2016-09-06] MEDS: FLUTICASONE/SALMETEROL DISKUS 250-50 MCG/DOSE IH SCH (12:27)
[2016-09-06 20:58] VITALS: BP 177/88
== END 2016-09-06 23:08 | DRG 872 ==
LOC: ER 21:27 → EH 08-29 01:35 → UNDOADMIN 08-29 01:35 → 3S 08-29 03:33 → EH 08-29 03:33 → 3S 08-29 06:33
PROVIDERS: ADMIT Family Medicine; ATTEND Family Medicine
PROC: 02HV33Z Insertion of Infusion Device into Superior Vena Cava, Percutaneous Approach (ICD-10-PCS; principal; 2016-09-02)
PROC: B5181ZA Fluoroscopy of Superior Vena Cava using Low Osmolar Contrast, Guidance (ICD-10-PCS; 2016-09-02)
PROC: B548ZZA Ultrasonography of Superior Vena Cava, Guidance (ICD-10-PCS; 2016-09-02)
DX: A41.9 Sepsis, unspecified organism (principal); N39.0 Urinary tract infection, site not specified; I13.0 Hypertensive heart and chronic kidney disease with heart failure and stage 1 through stage 4 chronic kidney disease, or unspecified chronic kidney disease; I50.30 Unspecified diastolic (congestive) heart failure; N17.9 Acute kidney failure, unspecified; C67.9 Malignant neoplasm of bladder, unspecified; Z16.12 Extended spectrum beta lactamase (ESBL) resistance; E11.22 Type 2 diabetes mellitus with diabetic chronic kidney disease; N18.3 Chronic kidney disease, stage 3 (moderate); J44.9 Chronic obstructive pulmonary disease, unspecified; D64.9 Anemia, unspecified; Z51.5 Encounter for palliative care; Z66 Do not resuscitate; E78.5 Hyperlipidemia, unspecified; K21.9 Gastro-esophageal reflux disease without esophagitis; F03.90 Unspecified dementia, unspecified severity, without behavioral disturbance, psychotic disturbance, mood disturbance, and anxiety; Z79.899 Other long term (current) drug therapy; Z79.4 Long term (current) use of insulin; Z87.891 Personal history of nicotine dependence
CPT/HCPCS: 36415; 36569; 71010; 76380; 76937; 77001; 80048; 81001; 82272; 82962; 85025; 87040; 87077; 87186; 94640; 99285; G8978-GP; G8979-GP; J0692; J1335; J1642; J1815; J1940; J1956; J2920; J3490; J7030; J7620

== ENCOUNTER 2016-09-07 03:47 | Emergency (ER) | payer MEDICARE, MEDICAID ==
[2016-09-07] MEDS ORDERED: METHYLPREDNISOLONE INJ 125 MG/2 ML SDV IV ONE (04:46)
--- NOTE | 2016-09-07 04:49 | ER Document Report ---
ED Fall - General Chief Complaint: Fall Stated Complaint: FALL Time Seen by Provider: 09/07/16 04:39 Mode of Arrival: Medic Information source: Patient Notes: 31-year-old male presents to ED for complaint of having back pain after a fall. He is very short of breath wheezing with some rales noted. Patient does have bilateral nephrostomy tubes. TRAVEL OUTSIDE OF THE [place] IN LAST 30 DAYS: No - HPI Occurred: Yesterday Where: [place] Associated symptoms: None Location of injury/pain: Back Quality of pain: Achy Severity: Moderate Pain Level: 3 - Related data Allergies/Adverse Reactions: No Known Allergies Allergy (Verified 08/02/16 17:26) Past Medical History - General Information source: Emergency Med Personnel, [facility] Records Cannot obtain history due to: Dementia - Social History Smoking Status: Former Smoker Cigarette use (# per day): No Chew tobacco use (# tins/day): No Smoking Education Provided: No Frequency of alcohol use: None Drug Abuse: None Lives with: [facility] Family History: Reviewed & Not Pertinent Patient has suicidal ideation: No Patient has homicidal ideation: No - Past Medical History Cardiac Medical History: Reports: Hx Hypercholesterolemia, Hx Hypertension Pulmonary Medical History: Reports: Hx COPD EENT Medical History: Reports: None Neurological Medical History: Reports: None Endocrine Medical History: Reports: Hx Diabetes Mellitus Type 2, Hx Hypothyroidism Renal/ Medical History: Reports: Hx End Stage Renal Disease - III Malignancy Medical History: Reports None GI Medical History: Reports: Hx Gastroesophageal Reflux Disease Musculoskeltal Medical History: Reports Hx Arthritis, Reports Hx Musculoskeletal Deformity Skin Medical History: Reports None Psychiatric Medical History: Reports: Hx Dementia Traumatic Medical History: Reports: None Infectious Medical History: Reports: None Past Surgical History: Reports: Other - Bilateral nephrostomy tubes were placed Review of Systems - Review of Systems Constitutional: No symptoms reported EENT: No symptoms reported Cardiovascular: No symptoms reported Respiratory: Cough, Short of breath, Wheezing Gastrointestinal: No symptoms reported Genitourinary: No symptoms reported Male Genitourinary: No symptoms reported Musculoskeletal: Back pain Skin: No symptoms reported Hematologic/Lymphatic: No symptoms reported Neurological/Psychological: No symptoms reported -: Yes All other systems reviewed and negative Physical Exam - Vital signs Vitals: Resp 22 H 09/07/16 04:04 Interpretation: Normal - General General appearance: Appears well, Alert - HEENT Head: Normocephalic, Atraumatic Eyes: Normal Pupils: PERRL - Respiratory Respiratory status: No respiratory distress Chest status: Nontender Breath sounds: Nonproductive cough, Rales, Wheezing Chest palpation: Normal - Cardiovascular Rhythm: Regular Heart sounds: Normal auscultation Murmur: No - Abdominal Inspection: Normal Distension: No distension Bowel sounds: Normal Tenderness: Nontender Organomegaly: No organomegaly Notes: Bilateral nephrostomy tubes - Back Back: Normal, Nontender. No: Tender, Deformity/step-off, CVA tenderness, Vertebra tenderness, Scars, Scoliosis - Extremities General upper extremity: Normal inspection, Nontender, Normal color, Normal ROM , Normal temperature General lower extremity: Normal inspection, Nontender, Normal color, Normal ROM , Normal temperature, Normal weight bearing. No: Armida's sign - Neurological Neuro grossly intact: Yes Cognition: Normal Orientation: AAOx4 [place]wood Coma Scale Eye Opening: Spontaneous Irene Coma Scale Verbal: Oriented Irene Coma Scale Motor: Obeys Commands Irene Coma Scale Total: 15 Speech: Normal Motor strength normal: LUE, RUE, LLE, RLE Sensory: Normal - Psychological Associated symptoms: Normal affect, Normal mood - Skin Skin Temperature: Warm Skin Moisture: Dry Skin Color: Normal Course - Re-evaluation Re-evalutation: 09/07/16 06:17 Patient was treated with Solu-Medrol albuterol and DuoNeb. Patient states he feels much better. Denies pain - Vital Signs Vital signs: Temp Pulse Resp BP Pulse Ox 21 H 155/83 H 95 09/07/16 07:01 09/07/16 07:01 09/07/16 07:01 - Diagnostic Test Radiology reviewed: Image reviewed, Reports reviewed Discharge - Discharge Clinical Impression: COPD exacerbation Back pain Qualifiers: Back pain location: thoracic back pain Chronicity: acute Back pain laterality: bilateral Qualified Code(s): M54.6 - Pain in thoracic spine Fall at alf Qualifiers: Encounter type: initial encounter Qualified Code(s): W19.XXXA - Unspecified fall, initial encounter Condition: Stable Disposition: HOME, SELF-CARE Additional Instructions: Chronic Obstructive Lung Disease You have chronic obstructive lung disease (COPD). The symptoms come from emphysema (damage to small airways, with trapping of air in large sacks in the lung) and chronic bronchitis (repeated infection and damage to larger airways). The cause is almost always cigarette smoking, although dust exposure, asthma, and infections contribute. You should avoid fumes, dust, and smoke (especially tobacco smoke). Your condition will flare from time to time. There is no cure, but the symptoms can be treated. Bronchodilators (asthma medicine) are often helpful. Antibiotics help when infection is present. When shortness of breath is severe, we may prescribe cortisone medication. If medicine doesn't help enough, we can arrange for you to have an oxygen tank at home. Notify your doctor at once if sputum becomes thick, foul, or bloody, if you develop a fever or chest pain, or if your shortness of breath worsens. CONTUSION: Your injury has resulted in a contusion -- a crushing of the deep tissues. No injury to important structures was detected during the physician's exam. Contusions vary in the amount of pain they cause, and in the length of time required for healing. Typically, the area will become bruised, and will remain painful to touch for two or three weeks. However, most patients are back to working and playing within a few days. After the initial period of rest and cold-packs, your symptoms (together with the doctor's recommendations) will determine how rapidly you can get back to full activity. Usually this means "do what feels okay, but don't do things that hurt." If re-examination was recommended, it's important to follow up as instructed. Call the doctor or return any time if pain increases, if swelling becomes severe, if you develop numbness or weakness in an injured extremity, or if any other alarming symptoms occur. USE OF TYLENOL (ACETAMINOPHEN): Acetaminophen may be taken for pain relief or fever control. It's much safer than aspirin, offering a wider range of "safe" dosages. It is safe during . Some brand names are Tylenol, Panadol, Datril, Anacin 3, Tempra, and Liquiprin. Acetaminophen can be repeated every four hours. The following are maximum recommended dosages: WEIGHT Dose Drops Elixir Chewable( 80mg) (LBS.) drprs=droppers tsp=teaspoon 6 40 mg 0.4 ml (1/2) 6-11 80 mg 0.8 ml (full) tsp 1 tab 12-16 120 mg 1 1/2 drprs 3/4 tsp 1 /2 tabs 17-23 160 mg 2 drprs 1 tsp 2 tabs 24-30 240 mg 3 drprs 1 1/2 tsp 3 tabs 30-35 320 mg 2 tsp 4 tabs 36-41 360 mg 2 1/4 tsp 4 1/2 tabs 42-47 400 mg 2 1/2 tsp 5 tabs 48-53 480 mg 3 tsp 6 tabs 54-59 520 mg 3 1/4 tsp 6 1/2 tabs 60-64 560 mg 3 1/2 tsp 7 tabs 65-70 600 mg 3 3/4 tsp 7 1/2 tabs 71-76 640 mg 4 tsp 8 tabs 77-82 720 mg 4 1/2 tsp 9 tabs 83-88 800 mg 5 tsp 10 tabs >89 pounds or adults 650 mg to 900 mg Acetaminophen can be repeated every four hours. Maximum dose not to exceed 4000 mg a day. These maximum recommended dosages are slightly higher than the dosages written on the product container, but these dosages are very safe and below the toxic dosage for acetaminophen. STEROID MEDICATION: You have been given an injection of or oral medicine of the cortisone/ steroid class. This medication is used to control inflammation or allergy. Bay t is usually only given for a short period of time, until the acute process subsides. There are usually no side effects from short-term use of cortisone-like medications. Some persons feel an increased sense of well-being and are not sleepy at bedtime. Long-term use of cortisone medications is best avoided, unless required for a severe condition. If your condition does not remit, or relapses after the course of corticosteroid medication, you should consult your physician. INHALED BRONCHODILATORS: You have received treatment(s) of and/or prescription for an inhaled bronchodilator -- a medication which stimulates the airways in the lung to dilate. This improves the flow of air in asthma, bronchitis, and emphysema. These medicines have some similarity to adrenaline, and can cause similar side effects: shakiness, racing heart, and a sense of nervousness. These side effects decrease with time. Contact your doctor if these side effects are severe. Do not over-use the medicine. Too-frequent use of the inhaler may make it ineffective. Call your doctor if the inhaler is not controlling your symptoms at the prescribed doses. FOLLOW-UP CARE: If you have been referred to a physician for follow-up care, call the physician s office for an appointment as you were instructed or within the next two days. If you experience worsening or a significant change in your symptoms, notify the physician immediately or return to the Emergency Department at any time for re-evaluation. Follow-up with your primary doctor in next 24-48 hours Prescriptions: Albuterol Sulfate [Albuterol Sulfate 2.5mg/3 mL] 2.5 mg IH Q4 #20 ml Prednisone [Deltasone 10 mg Tablet] 10 mg PO ASDIR PRN #21 tablet PRN Reason: Forms: Elevated Blood Pressure
--- NOTE | 2016-09-07 05:41 | RADIOLOGY REPORT (SQ) ---
EXAM DESCRIPTION: CHEST PA/LAT COMPLETED DATE/TIME: 09/07/2016 5:24 am REASON FOR STUDY: cough congestion c/o back pain COMPARISON: None. EXAM PARAMETERS: NUMBER OF VIEWS: two views TECHNIQUE: Digital Frontal and Lateral radiographic views of the chest acquired. RADIATION DOSE: NA LIMITATIONS: Rotation. FINDINGS: LUNGS AND PLEURA: Mild interstitial markings. Blunting of bilateral costophrenic angles. MEDIASTINUM AND HILAR STRUCTURES: No masses or contour abnormalities. HEART AND VASCULAR STRUCTURES: Mild enlargement of the cardiac silhouette. BONES: Mild chronic deformity of posterior right mid thoracic ribs. HARDWARE: Left PICC tip at the cavoatrial junction. OTHER: No other significant finding. IMPRESSION: No acute cardiopulmonary findings. TECHNICAL DOCUMENTATION: JOB ID: [id number] [employer]- All Rights Reserved
[2016-09-07 09:30] VITALS: BP 156/86
== END 2016-09-07 09:50 | disposition home or self-care (01) ==
LOC: ER 03:47
DX: J44.1 Chronic obstructive pulmonary disease with (acute) exacerbation (principal); M54.6 Pain in thoracic spine; M54.9 Dorsalgia, unspecified; R06.02 Shortness of breath; R06.2 Wheezing; W19.XXXA Unspecified fall, initial encounter; Z87.891 Personal history of nicotine dependence
CPT/HCPCS: 99285; 96374; 71020; J2930

== ENCOUNTER 2016-09-15 18:26 | Emergency (ER) | payer MEDICARE, MEDICAID ==
--- NOTE | 2016-09-15 18:35 | ER Document Report ---
ED General - General Chief Complaint: Other Stated Complaint: TUBE ISSUES Time Seen by Provider: 09/15/16 18:34 Notes: Patient is an 81-year-old male, past medical history stage IV bladder cancer, bilateral nephrostomy tubes, presents from [facility] after he pulled out the right nephrostomy tube. Looking through old records, the nephrostomy tubes were placed at [facility]. Patient denies pain, fevers, nausea or vomiting. TRAVEL OUTSIDE OF THE [place] IN LAST 30 DAYS: No - Related Data Allergies/Adverse Reactions: No Known Allergies Allergy (Verified 08/02/16 17:26) Past Medical History - General Information source: Patient, OM Records, Outside Facility Records Cannot obtain history due to: Dementia - Social History Smoking Status: Unknown if Ever Smoked Family History: Reviewed & Not Pertinent - Past Medical History Cardiac Medical History: Reports: Hx Hypercholesterolemia, Hx Hypertension Pulmonary Medical History: Reports: Hx COPD Endocrine Medical History: Reports: Hx Diabetes Mellitus Type 2, Hx Hypothyroidism Renal/ Medical History: Reports: Hx End Stage Renal Disease - III GI Medical History: Reports: Hx Gastroesophageal Reflux Disease Musculoskeltal Medical History: Reports Hx Arthritis, Reports Hx Musculoskeletal Deformity Psychiatric Medical History: Reports: Hx Dementia Past Surgical History: Reports: Other - Bilateral nephrostomy tubes were placed Review of Systems - Review of Systems -: Yes ROS unobtainable due to patient's medical condition Physical Exam - Vital signs Vitals: Pulse Ox 98 09/15/16 18:52 - Notes Notes: PHYSICAL EXAMINATION: GENERAL: Cachectic appearing. HEAD: Atraumatic, normocephalic. EYES: Pupils equal round and reactive to light, extraocular movements intact, sclera anicteric, conjunctiva are normal. ENT: nares patent, oropharynx clear without exudates. Moist mucous membranes. NECK: Normal range of motion, supple without lymphadenopathy LUNGS: Breath sounds clear to auscultation bilaterally and equal. No wheezes rales or rhonchi. HEART: Regular rate and rhythm without murmurs ABDOMEN: right flank open wound with a small amount of urine draining, left flank with nephrostomy tube draining yellow urine, soft, nontender, normoactive bowel sounds. No guarding, no rebound. No masses appreciated. EXTREMITIES: Normal range of motion, no pitting or edema. No cyanosis. NEUROLOGICAL: Cranial nerves grossly intact. Normal sensory and motor exams. PSYCH: Normal mood, normal affect. SKIN: Warm, Dry, normal turgor, no rashes or lesions noted. Course - Re-evaluation Re-evalutation: 09/15/16 19:44 Pt with dislodged nephrostomy tube. Looking through skilled nursing records, pt has had his nephrostomy tubes placed at [facility]. Placed a call to transfer center and awaiting callback. 09/15/16 21:[address] Acuna ([facility] Hospitalist), who spoke to Dr. Glynn (IR). He does not require emergent transfer at this time since he has a functioning tube in place on the other side. He recommends placing a ostomy tube over the wound and then scheduling the IR appointment at [facility] tomorrow. Dr. Glynn is aware of the patient. Wrote this on patient's discharge instructions. Unable to locate an ostomy tube. Patient's wound sewn with a Figure-8 suture to stop the urine from flowing and he will follow-up with IR tomorrow. - Vital Signs Vital signs: Temp Pulse Resp BP Pulse Ox 98.5 F 71 16 139/67 H 98 09/15/16 18:55 09/15/16 18:55 09/15/16 18:55 09/15/16 23:01 09/15/16 23:01 - Laboratory Result Diagrams: 09/15/16 22:00 09/15/16 20:15 Laboratory results interpreted by me: 09/15/16 09/15/16 20:15 22:00 WBC 17.5 H RBC 4.20 L Hgb 11.9 L Hct 37.2 L RDW 16.9 H Plt Count 84 L Seg Neutrophils % 87.8 H Lymphocytes % 6.9 L Absolute Neutrophils 15.3 H BUN 73 H Creatinine 2.24 H Est GFR ( Amer) 34 L Est GFR (Non-Af Amer) 28 L Glucose 135 H Calcium 6.9 L* Direct Bilirubin 0.9 H AST 477 H ALT 181 H Alkaline Phosphatase 636 H Total Protein 4.8 L Albumin 2.0 L Procedures - Laceration/Wound Repair Right Back Time completed: 23:55 Wound length (cm): 0.5 Wound's Depth, Shape: Into muscle Anesthetic type: 1% Lidocaine Wound explored: Clean Wound Repaired With: Sutures Suture Size/Type: Vicryl, 3:0 Number of Sutures: 1 Layer Closure?: No Post-procedure wound care: Sterile dressing applied Post-procedure NV exam normal: Yes Complications: No Discharge - Discharge Clinical Impression: Nephrostomy tube displaced Condition: Stable Disposition: SNF Additional Instructions: You must call the [facility] ( ) tomorrow to have your nephrostomy tube replaced by Dr. Palomo ([facility]iology). Keep the ostomy tube in place until then.
[2016-09-15 21:29] LABS: ALANINE AMINOTRANSFERASE 181 U/L (21-72); ALKALINE PHOSPHATASE 636 U/L (38-126); ANION GAP 11 (5-19); ASPARTATE AMINO TRANSFERASE 477 U/L (17-59); BILIRUBIN,DIRECT 0.9 mg/dL (0.0-0.4); BLOOD UREA NITROGEN 73 mg/dL (7-20); CARBON DIOXIDE 23 mmol/L (22-30); CHLORIDE 104 mmol/L (98-107); CREATININE RESULT 2.24 mg/dL (0.52-1.25); GLUCOSE 135 mg/dL (75-110); POTASSIUM 3.7 mmol/L (3.6-5.0); SODIUM 138.1 mmol/L (137-145); TOTAL PROTEIN 4.8 g/dL (6.3-8.2)
[2016-09-15 21:38] LABS: CALCIUM 6.9 mg/dL (8.4-10.2)
[2016-09-15 22:25] LABS: ABSOLUTE BASOPHILS # (AUTO) 0.1 10^3/uL (0.0-0.2); ABSOLUTE LYMPHOCYTES (AUTO) 1.2 10^3/uL (0.5-4.7); ABSOLUTE MONOCYTES (AUTO) 0.8 10^3/uL (0.1-1.4); ABSOLUTE NEUT (AUTO) 15.3 10^3/uL (1.7-8.2); BASOPHILS % (AUTO) 0.6 % (0-2); EOSINOPHILS % (AUTO) 0.3 % (0-6); HEMATOCRIT 37.2 % (37.9-51.0); HEMOGLOBIN 11.9 g/dL (13.5-17.0); HGB HCT DIFFERENCE -1.5; LYMPHOCYTES % (AUTO) 6.9 % (13-45); MEAN CORPUSCULAR HEMOGLOBIN 28.3 pg (27.0-33.4); MEAN CORPUSCULAR VOLUME 88 fl (80-97); MONOCYTES % (AUTO) 4.4 % (3-13); RED CELL DISTRIBUTION WIDTH 16.9 % (11.5-14.0); SEGMENTED NEUTROPHILS % (AUTO) 87.8 % (42-78); WHITE BLOOD COUNT 17.5 10^3/uL (4.0-10.5)
[2016-09-15] MEDS ORDERED: LIDOCAINE 1% INJ-PF (10 MG/ML) 30 ML SDV INJ ONE (23:57)
[2016-09-15] MEDS ORDERED: LIDOCAINE 1% INJ-PF (10 MG/ML) 30 ML SDV ONE (23:59)
[2016-09-16 07:54] VITALS: BP 144/73
== END 2016-09-16 06:29 ==
LOC: ER 18:26
PROC: 0HQ6XZZ Repair Back Skin, External Approach (ICD-10-PCS; principal; 2016-09-15)
DX: T83.022A Displacement of nephrostomy catheter, initial encounter (principal); Y73.8 Miscellaneous gastroenterology and urology devices associated with adverse incidents, not elsewhere classified; C67.9 Malignant neoplasm of bladder, unspecified; J44.9 Chronic obstructive pulmonary disease, unspecified; I12.0 Hypertensive chronic kidney disease with stage 5 chronic kidney disease or end stage renal disease; E11.22 Type 2 diabetes mellitus with diabetic chronic kidney disease; N18.6 End stage renal disease; F03.90 Unspecified dementia, unspecified severity, without behavioral disturbance, psychotic disturbance, mood disturbance, and anxiety
CPT/HCPCS: 12001; 99284; 36415; 85025; 80053; J3490

== ENCOUNTER 2016-09-19 10:38 | Emergency (ER) | payer MEDICARE, MEDICAID ==
--- NOTE | 2016-09-19 10:58 | ER Document Report ---
ED GI/ - General Chief Complaint: Post Surgical Bleeding Stated Complaint: BLEEDING FROM TUBE Time Seen by Provider: 09/19/16 10:49 Mode of Arrival: Stretcher Information source: Emergency Med Personnel TRAVEL OUTSIDE OF THE [place] IN LAST 30 DAYS: No - HPI Patient complains to provider of: Hematuria Quality of pain: No pain Associated symptoms: Loss of appetite Similar symptoms previously: Yes Recently seen / treated by doctor: Yes Notes: 09/19/16 11:03 Patient is an 81-year-old male who presents to the emergency room from [facility] for complaints of hematuria from bilateral nephrostomy tubes, patient has a history of bladder cancer, he had nephrostomy tubes placed previously, on 09/16/2016, he had the right one replaced as he had pulled it out , and glucose done at [facility], he is also on IV antibiotics for urinary tract infection, for which he has a PICC line placed - Related Data Allergies/Adverse Reactions: No Known Allergies Allergy (Verified 09/19/16 10:58) Past Medical History - General Information source: Patient - Social History Smoking Status: Unknown if Ever Smoked Family History: Reviewed & Not Pertinent - Past Medical History Cardiac Medical History: Reports: Hx Hypercholesterolemia, Hx Hypertension Pulmonary Medical History: Reports: Hx COPD Endocrine Medical History: Reports: Hx Diabetes Mellitus Type 2, Hx Hypothyroidism Renal/ Medical History: Reports: Hx End Stage Renal Disease - III. Denies: Hx Peritoneal Dialysis GI Medical History: Reports: Hx Gastroesophageal Reflux Disease Musculoskeltal Medical History: Reports Hx Arthritis, Reports Hx Musculoskeletal Deformity Psychiatric Medical History: Reports: Hx Dementia Past Surgical History: Reports: Hx Urinary Tract Surgery - bilat nephrostomies, Other - Bilateral nephrostomy tubes were placed Review of Systems - Review of Systems Constitutional: No symptoms reported EENT: No symptoms reported Cardiovascular: No symptoms reported Respiratory: No symptoms reported Gastrointestinal: No symptoms reported Genitourinary: Hematuria Male Genitourinary: No symptoms reported Musculoskeletal: No symptoms reported Skin: No symptoms reported Hematologic/Lymphatic: No symptoms reported Neurological/Psychological: No symptoms reported -: Yes All other systems reviewed and negative Physical Exam - Vital signs Vitals: Resp Pulse Ox 26 H 98 09/19/16 10:49 09/19/16 10:49 Interpretation: Normal - General General appearance: Alert In distress: None - HEENT Head: Normocephalic, Atraumatic Eyes: Normal Conjunctiva: Normal Extraocular movements intact: Yes Eyelashes: Normal Pupils: PERRL Mucous membranes: Dry Pharynx: Normal Neck: Normal - Respiratory Respiratory status: No respiratory distress Chest status: Nontender Breath sounds: Normal Chest palpation: Normal - Cardiovascular Rhythm: Regular Heart sounds: Normal auscultation Murmur: No - Abdominal Inspection: Normal Distension: No distension Bowel sounds: Normal Tenderness: Nontender Organomegaly: No organomegaly - Back Back: Other - Bilateral nephrostomy tubes in place, va hematuria - Extremities General upper extremity: Normal inspection General lower extremity: Normal inspection - Neurological Irene Coma Scale Eye Opening: Spontaneous [place] Coma Scale Verbal: Confused [place] Coma Scale Motor: Obeys Commands [place] Coma Scale Total: 14 - Skin Skin Temperature: Warm Skin Moisture: Dry Skin Color: Normal Course - Re-evaluation Re-evalutation: 09/19/16 12:13 Patient was discussed with Dr. Amin, who is on-call for Dr. Pierce, vital signs, lab findings and physical exam findings were discussed as well as patient 's history of bladder cancer, he recommends patient continue on antibiotics for urinary tract infection, otherwise patient has advanced stage bladder cancer, according to previous notes he is on palliative care, there is not much else that can be offered during a hospital stay, he recommends patient be transferred back to the long term - Vital Signs Vital signs: Temp Pulse Resp BP Pulse Ox 97.9 F 61 17 125/69 97 09/19/16 10:56 09/19/16 10:56 09/19/16 11:01 09/19/16 11:01 09/19/16 11:01 - Laboratory Result Diagrams: 09/19/16 11:05 09/19/16 11:05 Laboratory results interpreted by me: 09/19/16 09/19/16 09/19/16 11:05 11:05 11:05 WBC 14.9 H RBC 3.48 L Hgb 9.8 L Hct 30.6 L RDW 17.5 H Plt Count 57 L Seg Neutrophils % 89.4 H Lymphocytes % 5.8 L Absolute Neutrophils 13.3 H PT 19.2 H APTT 49.4 H Carbon Dioxide 21 L BUN 99 H Creatinine 3.33 H Est GFR ( Amer) 22 L Est GFR (Non-Af Amer) 18 L Glucose 271 H Calcium 6.3 L* Direct Bilirubin 1.2 H AST 481 H ALT 189 H Alkaline Phosphatase 836 H Total Protein 4.5 L Albumin 1.8 L Urine Protein Urine Glucose (UA) Urine Blood Urine Urobilinogen Ur Leukocyte Esterase 09/19/16 11:17 WBC RBC Hgb Hct RDW Plt Count Seg Neutrophils % Lymphocytes % Absolute Neutrophils PT APTT Carbon Dioxide BUN Creatinine Est GFR ( Amer) Est GFR (Non-Af Amer) Glucose Calcium Direct Bilirubin AST ALT Alkaline Phosphatase Total Protein Albumin Urine Protein 100 H Urine Glucose (UA) 150 H Urine Blood LARGE H Urine Urobilinogen 2.0 H Ur Leukocyte Esterase SMALL H Discharge - Discharge Clinical Impression: CKD (chronic kidney disease), stage IV, Urinary tract bacterial infections, Hematuria Condition: Stable Disposition: HOME-SNF (ED ONLY) Referrals: KASHIF PIERCE MD [Primary Care Provider] - Follow up as needed
[2016-09-19 11:21] LABS: ABSOLUTE BASOPHILS # (AUTO) 0.1 10^3/uL (0.0-0.2); ABSOLUTE LYMPHOCYTES (AUTO) 0.9 10^3/uL (0.5-4.7); ABSOLUTE MONOCYTES (AUTO) 0.6 10^3/uL (0.1-1.4); ABSOLUTE NEUT (AUTO) 13.3 10^3/uL (1.7-8.2); BASOPHILS % (AUTO) 0.5 % (0-2); EOSINOPHILS % (AUTO) 0.1 % (0-6); HEMATOCRIT 30.6 % (37.9-51.0); HEMOGLOBIN 9.8 g/dL (13.5-17.0); HGB HCT DIFFERENCE -1.2; LYMPHOCYTES % (AUTO) 5.8 % (13-45); MEAN CORPUSCULAR HEMOGLOBIN 28.3 pg (27.0-33.4); MEAN CORPUSCULAR HGB CONC 32.2 g/dL (32.0-36.0); MEAN CORPUSCULAR VOLUME 88 fl (80-97); MONOCYTES % (AUTO) 4.2 % (3-13); RED BLOOD COUNT 3.48 10^6/uL (4.35-5.55); RED CELL DISTRIBUTION WIDTH 17.5 % (11.5-14.0); SEGMENTED NEUTROPHILS % (AUTO) 89.4 % (42-78); WHITE BLOOD COUNT 14.9 10^3/uL (4.0-10.5)
[2016-09-19 11:26] LABS: PROTHROMBIN TIME 19.2 SEC (11.4-15.4)
[2016-09-19 11:27] LABS: PARTIAL THROMBOPLASTIN TIME 49.4 SEC (23.5-35.8)
[2016-09-19 11:39] LABS: ALANINE AMINOTRANSFERASE 189 U/L (21-72); ALBUMIN 1.8 g/dL (3.5-5.0); ALKALINE PHOSPHATASE 836 U/L (38-126); ANION GAP 14 (5-19); ASPARTATE AMINO TRANSFERASE 481 U/L (17-59); BILIRUBIN,DIRECT 1.2 mg/dL (0.0-0.4); BILIRUBIN,TOTAL 1.3 mg/dL (0.2-1.3); BLOOD UREA NITROGEN 99 mg/dL (7-20); CARBON DIOXIDE 21 mmol/L (22-30); CHLORIDE 103 mmol/L (98-107); CREATININE RESULT 3.33 mg/dL (0.52-1.25); GLUCOSE 271 mg/dL (75-110); POTASSIUM 3.9 mmol/L (3.6-5.0); SODIUM 137.5 mmol/L (137-145); TOTAL PROTEIN 4.5 g/dL (6.3-8.2)
[2016-09-19 12:04] LABS: APPEARANCE,URINE CLOUDY; BILIRUBIN,URINE NEGATIVE (NEGATIVE); GLUCOSE, URINE 150 mg/dL (NEGATIVE); KETONES,URINE NEGATIVE (NEGATIVE); LEUKOCYTE ESTERASE,URINE SMALL (NEGATIVE); NITRITE,URINE NEGATIVE (NEGATIVE); PROTEIN,URINE 100 mg/dL (NEGATIVE)
[2016-09-19 12:04] LABS: CALCIUM 6.3 mg/dL (8.4-10.2)
[2016-09-19] MEDS ORDERED: CALCIUM GLUCONATE 1000 MG/10 ML INJ IV ONE (12:15)
[2016-09-19 16:31] VITALS: BP 139/89
== END 2016-09-19 16:31 ==
LOC: ER 10:38
DX: N39.0 Urinary tract infection, site not specified (principal); R31.9 Hematuria, unspecified; B96.89 Other specified bacterial agents as the cause of diseases classified elsewhere; C67.9 Malignant neoplasm of bladder, unspecified; E11.22 Type 2 diabetes mellitus with diabetic chronic kidney disease; I12.0 Hypertensive chronic kidney disease with stage 5 chronic kidney disease or end stage renal disease; N18.6 End stage renal disease; Z99.2 Dependence on renal dialysis; E78.00 Pure hypercholesterolemia, unspecified; J44.9 Chronic obstructive pulmonary disease, unspecified; E03.9 Hypothyroidism, unspecified; K21.9 Gastro-esophageal reflux disease without esophagitis; Z90.5 Acquired absence of kidney; Z93.6 Other artificial openings of urinary tract status; Z51.5 Encounter for palliative care
CPT/HCPCS: 99283; 96365; 36415; 87040; 87086; 85025; 85610; 85730; 87077; 80053; 81001; J0610

== ENCOUNTER 2016-09-21 02:13 | Emergency (ER) | payer MEDICARE, MEDICAID ==
[2016-09-21] MEDS ORDERED: CASPOFUNGIN ACETATE 70 MG IV ONE (02:50)
[2016-09-21 04:08] LABS: HEMATOCRIT 26.9 % (37.9-51.0); HEMOGLOBIN 8.8 g/dL (13.5-17.0); HGB HCT DIFFERENCE -0.5; MEAN CORPUSCULAR HEMOGLOBIN 28.5 pg (27.0-33.4); MEAN CORPUSCULAR HGB CONC 32.7 g/dL (32.0-36.0); MEAN CORPUSCULAR VOLUME 87 fl (80-97); RED BLOOD COUNT 3.09 10^6/uL (4.35-5.55); WHITE BLOOD COUNT 17.5 10^3/uL (4.0-10.5)
[2016-09-21 04:10] LABS: ALANINE AMINOTRANSFERASE 260 U/L (21-72); ALBUMIN 1.7 g/dL (3.5-5.0); ALKALINE PHOSPHATASE 817 U/L (38-126); ANION GAP 17 (5-19); BILIRUBIN,DIRECT 1.5 mg/dL (0.0-0.4); BILIRUBIN,TOTAL 1.6 mg/dL (0.2-1.3); CARBON DIOXIDE 16 mmol/L (22-30); CHLORIDE 105 mmol/L (98-107); CREATININE RESULT 4.47 mg/dL (0.52-1.25); GLUCOSE 100 mg/dL (75-110); SODIUM 137.9 mmol/L (137-145); TOTAL PROTEIN 4.6 g/dL (6.3-8.2)
[2016-09-21 04:19] LABS: ASPARTATE AMINO TRANSFERASE 1218 U/L (17-59); BLOOD UREA NITROGEN 126 mg/dL (7-20); CALCIUM 5.8 mg/dL (8.4-10.2)
[2016-09-21 04:36] LABS: BASOPHILS % (MANUAL) 0 % (0-2); EOSINOPHILS % (MANUAL) 0 % (0-6); LYMPHOCYTES % (MANUAL) 3 % (13-45); TOTAL CELLS COUNTED 100
[2016-09-21 04:40] LABS: ANISOCYTOSIS 1+; BURR CELLS SLIGHT; OVALOCYTES SLIGHT; TOXIC GRANULATION 1+
[2016-09-21] MEDS ORDERED: FLUCONAZOLE 400 MG/NS RTU 200 ML IV ONE (05:17)
[2016-09-21 05:21] LABS: APPEARANCE,URINE CLOUDY
[2016-09-21 05:22] LABS: BILIRUBIN,URINE NEGATIVE (NEGATIVE); GLUCOSE, URINE NEGATIVE (NEGATIVE); KETONES,URINE NEGATIVE (NEGATIVE); LEUKOCYTE ESTERASE,URINE TRACE (NEGATIVE); NITRITE,URINE NEGATIVE (NEGATIVE); PROTEIN,URINE >=500 mg/dL (NEGATIVE); UROBILINOGEN,URINE NEGATIVE mg/dL (<2.0)
--- NOTE | 2016-09-21 05:34 | ER Document Report ---
ED General - General Chief Complaint: Abnormal Lab Results Stated Complaint: ABNORMAL LABS Time Seen by Provider: 09/21/16 02:23 Notes: Patient is an 81 year old male that comes to the ED for chief complaint of positive blood culture from 09/19/16 showing yeast. [facility]. No fever reported, no abnormal vital signs reported. Patient has a very complicated medical history including history of bladder cancer, history of bilateral nephrostomy tubes, he has a PICC line currently on doxycycline for ongoing urinary tract infections, type 2 diabetes, end-stage renal disease. TRAVEL OUTSIDE OF THE [place] IN LAST 30 DAYS: No - Related Data Allergies/Adverse Reactions: No Known Allergies Allergy (Verified 09/19/16 10:58) Past Medical History - General Information source: Transfer Record - Social History Smoking Status: Never Smoker Frequency of alcohol use: None Drug Abuse: None Lives with: Assisted Family History: Reviewed & Not Pertinent - Past Medical History Cardiac Medical History: Reports: Hx Hypercholesterolemia, Hx Hypertension Pulmonary Medical History: Reports: Hx COPD Endocrine Medical History: Reports: Hx Diabetes Mellitus Type 2, Hx Hypothyroidism Renal/ Medical History: Reports: Hx End Stage Renal Disease - III. Denies: Hx Peritoneal Dialysis GI Medical History: Reports: Hx Gastroesophageal Reflux Disease Musculoskeltal Medical History: Reports Hx Arthritis, Reports Hx Musculoskeletal Deformity Psychiatric Medical History: Reports: Hx Dementia Past Surgical History: Reports: Hx Urinary Tract Surgery - bilat nephrostomies, Other - Bilateral nephrostomy tubes were placed Review of Systems - Review of Systems Constitutional: See HPI EENT: No symptoms reported Cardiovascular: See HPI Respiratory: No symptoms reported Gastrointestinal: No symptoms reported Genitourinary: No symptoms reported Male Genitourinary: No symptoms reported Musculoskeletal: No symptoms reported Skin: No symptoms reported Hematologic/Lymphatic: No symptoms reported Neurological/Psychological: No symptoms reported Physical Exam - Vital signs Vitals: Temp Pulse BP Pulse Ox 97.7 F 68 114/41 L 95 09/21/16 02:23 09/21/16 02:23 09/21/16 02:23 09/21/16 02:23 Interpretation: Normal - General General appearance: Other - Patient resting quietly on the bed In distress: Mild - Occasionally patient grimaces - HEENT Head: Normocephalic, Atraumatic Eyes: Normal Pupils: PERRL - Respiratory Respiratory status: No respiratory distress Chest status: Nontender Breath sounds: Normal. No: Decreased air movement, Wheezing Chest palpation: Normal - Cardiovascular Rhythm: Regular. No: Tachycardia Heart sounds: Normal auscultation, S1 appreciated, S2 appreciated - Abdominal Inspection: Normal Distension: No distension Bowel sounds: Normal Tenderness: Nontender. No: Tender, Guarding - Back Back: Normal, Nontender, Other - Bilateral nephrostomy tubes with extending tubes down to the legs with leg bag in place. No noted abnormality, leaking, or concerning findings - Extremities General upper extremity: Normal inspection, Nontender, Normal color, Normal ROM , Normal temperature General lower extremity: Normal inspection, Nontender, Normal color, Normal ROM , Normal temperature, Normal weight bearing. 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 Frequently mumbles. He does not appear uncomfortable at this time. Initial vital signs unremarkable. Initially given dose of fluconazole because of positive yeast in the blood culture. Pending workup. Increased leukocytosis, positive lactic acid, worsening multiorgan failure including liver function, kidney functioning, and metabolic acidosis. I was able to speak to the daughter, she states that patient has lived a good life, they already signed paperwork for him to be comfort measures. He is DNR/DNI status, although he did not have that paperwork sent with him to the ED. patient given dose of pain medicine. Discussed with Dr. Salguero. Discussed with Dr. Pierce. He states that patient will be made comfortable along with daughter's wishes, he is already aware of this situation, recommend patient be prescribed pain medication to make him comfortable, recommend sending back to the detention for comfort care. Called Deya carpio, she states agreement with this plan. - Vital Signs Vital signs: Temp Pulse Resp BP Pulse Ox 97.7 F 68 14 123/35 L 99 09/21/16 02:23 09/21/16 02:23 09/21/16 07:37 09/21/16 07:37 09/21/16 07:37 - Laboratory Result Diagrams: 09/21/16 03:37 09/21/16 03:37 Laboratory results interpreted by me: 09/21/16 09/21/16 09/21/16 03:37 03:37 03:37 WBC 17.5 H RBC 3.09 L Hgb 8.8 L Hct 26.9 L RDW 17.0 H Plt Count 49 L Seg Neuts % (Manual) 91 H Lymphocytes % (Manual) 3 L Abs Neuts (Manual) 15.9 H Carbon Dioxide 16 L BUN 126 H Creatinine 4.47 H Est GFR ( Amer) 15 L Est GFR (Non-Af Amer) 13 L Lactic Acid 3.9 H Calcium 5.8 L* Total Bilirubin 1.6 H Direct Bilirubin 1.5 H AST 1218 H ALT 260 H Alkaline Phosphatase 817 H Total Protein 4.6 L Albumin 1.7 L Urine Protein Urine Blood Ur Leukocyte Esterase 09/21/16 04:06 WBC RBC Hgb Hct RDW Plt Count Seg Neuts % (Manual) Lymphocytes % (Manual) Abs Neuts (Manual) Carbon Dioxide BUN Creatinine Est GFR ( Amer) Est GFR (Non-Af Amer) Lactic Acid Calcium Total Bilirubin Direct Bilirubin AST ALT Alkaline Phosphatase Total Protein Albumin Urine Protein >=500 H Urine Blood LARGE H Ur Leukocyte Esterase TRACE H Discharge - Discharge Clinical Impression: Multiple organ failure, Candidemia Disposition: HOME-SNF (ED ONLY) Additional Instructions: Multiorgan failure noted, continue with comfort measures, patient is DO NOT RESUSCITATE, DO NOT INTUBATE status. Give prescribed morphine for comfort measures as needed. Prescriptions: Morphine Sulfate [Morphine Ir 30 mg Tablet] 30 mg PO Q4HP PRN #60 tablet PRN Reason: Referrals: KASHIF PIERCE MD [Primary Care Provider] - Follow up as needed
[2016-09-21] MEDS ORDERED: HYDROMORPHONE HCL INJ/PF 2 MG/ML AMPULE IV ONE (06:19)
[2016-09-21] MEDS ORDERED: ONDANSETRON HCL INJ/PF 4 MG/2 ML SDV IV ONE (06:19)
[2016-09-21 07:45] VITALS: BP 123/35
== END 2016-09-21 08:33 ==
LOC: ER 02:13
DX: K72.90 Hepatic failure, unspecified without coma (principal); E87.2 Acidosis; R78.9 Finding of unspecified substance, not normally found in blood; B37.89 Other sites of candidiasis; E78.00 Pure hypercholesterolemia, unspecified; I10 Essential (primary) hypertension; J44.9 Chronic obstructive pulmonary disease, unspecified; E11.22 Type 2 diabetes mellitus with diabetic chronic kidney disease; I12.0 Hypertensive chronic kidney disease with stage 5 chronic kidney disease or end stage renal disease; N18.6 End stage renal disease; E03.9 Hypothyroidism, unspecified; K21.9 Gastro-esophageal reflux disease without esophagitis; Z87.440 Personal history of urinary (tract) infections; Z93.6 Other artificial openings of urinary tract status; Z66 Do not resuscitate
CPT/HCPCS: 99283; 96375; 96365; 36415; 87040; 85025; 87077; 80053; 81001; 83605; J3490; J1170; J2405